=== PATIENT | male | born 1960 | race Caucasian/White ===

== ENCOUNTER 2020-06-27 09:50 | Emergency (ER) | payer OTHER ==
[2020-06-27 09:59] VITALS: RESP 18; TEMP 98.4
[2020-06-27] MEDS ORDERED: SODIUM CHLORIDE 0.9% 500 ML 500 ML IV STA ×2 (10:16→11:34)
--- NOTE | 2020-06-27 10:21 | ED ---
General Adult HPI - General Chief complaint: Abdominal Pain Stated complaint: Right side pain Time Seen by Provider: 06/27/20 10:09 Source: patient, RN notes reviewed Mode of arrival: ambulatory Limitations: no limitations - History of Present Illness Initial comments: 61-year-old male with a past medical history of diabetes mellitus presents to the emergency room for several complaints. Patient's complaining of right upper quadrant abdominal pain 2 weeks. States that this pain worsens when he coughs, sneezes, or moves a certain way. Patient denies any injury. Denies associated chest pain or shortness of breath. States it started about 2 weeks ago. Denies fevers or chills. Denies nausea vomiting diarrhea. Patient also states that around the same time he had a scrotal swelling. States his testicles are about 4 times the size of normal. States they're slightly uncomfortable but denies any significant pain. Denies fevers or chills. Denies any history of heart failure. Denies swelling in the legs or elsewhere.Patient has no other complaints at this time including shortness of breath, chest pain, nausea or vomiting, headache, or visual changes. - Related Data Home Medications Medication Instructions Recorded Confirmed Atorvastatin [Lipitor] 10 mg PO HS 06/27/20 06/27/20 metFORMIN HCL 1,000 mg PO BID 06/27/20 06/27/20 Previous Rx's Medication Instructions Recorded Cephalexin [Keflex] 500 mg PO Q6HR 10 Days #40 cap 06/27/20 Levofloxacin [Levaquin] 500 mg PO DAILY 10 Days #10 tab 06/27/20 Allergies Allergy/AdvReac Type Severity Reaction Status Date / Time No Known Allergies Allergy Verified 06/27/20 12:18 Review of Systems ROS Statement: Those systems with pertinent positive or pertinent negative responses have been documented in the HPI. ROS Other: All systems not noted in ROS Statement are negative. Past Medical History Past Medical History: Diabetes Mellitus History of Any Multi-Drug Resistant Organisms: None Reported Past Surgical History: Orthopedic Surgery Additional Past Surgical History / Comment(s): ears, knees, left hip Past Psychological History: No Psychological Hx Reported Smoking Status: Never smoker Past Alcohol Use History: None Reported Past Drug Use History: Marijuana General Exam Limitations: no limitations General appearance: alert, in no apparent distress Head exam: Present: atraumatic, normocephalic, normal inspection Eye exam: Present: normal appearance, PERRL, EOMI. Absent: scleral icterus, conjunctival injection, periorbital swelling ENT exam: Present: normal exam, mucous membranes moist Neck exam: Present: normal inspection, full ROM. Absent: tenderness, meningismus, lymphadenopathy Respiratory exam: Present: normal lung sounds bilaterally. Absent: respiratory distress, wheezes, rales, rhonchi, stridor Cardiovascular Exam: Present: regular rate, normal rhythm, normal heart sounds. Absent: systolic murmur, diastolic murmur, rubs, gallop, clicks GI/Abdominal exam: Present: soft, normal bowel sounds, other (states the pain is RUQ to mid right abdomen but is non-tender in this area ). 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 Absent: testicular tenderness, urethral discharge, vertical testicular lie Neurological exam: Present: alert Course Vital Signs 06/27/20 06/27/20 09:53 11:57 Temperature 98.4 F Pulse Rate 92 77 Respiratory 18 18 Rate Blood Pressure 153/89 142/85 O2 Sat by Pulse 98 97 Oximetry EKG Findings - EKG Comments: EKG Findings:: Right bundle-branch block, sinus rhythm, ventricular rate 73, PA interval 162, QTC 482 Medical Decision Making - Medical Decision Making Vitals are stable. HPI and physical exam as documented. Of note patient does have some right upper quadrant abdominal pain without any tenderness. No associated chest pain or shortness of breath. Patient does have edema of the scrotum with erythema overlying the left side of the scrotum. CBC does show leukocytosis of 14. CMP unremarkable. Lactic acid of 2.2 likely secondary to dehydration. Urinalysis is unremarkable. Gallbladder ultrasound showed cholelithiasis, correlate for cholecystitis. Patient reevaluated, no signif icant upper abdominal tenderness. Negative Weinstein sign. Labs are generally unremarkable. Bilirubin is normal. At this time he will be referred to general surgery for cholelithiasis however we do not suspect cholecystitis. Scrotal ultrasound did reveal bilateral hydroceles with possible epididymitis on the left. He does have some mild pain in this area as well as erythema overlying the left anterior scrotum. No evidence for fourniers and symptoms have been ongoing for 2 weeks. Patient was also evaluated by Dr. Shay. At this time he will be treated for epididymitis and cellulitis with Levaquin and Keflex. He will be given urology follow-up as well. If he has any worsening symptoms such as worsening abdominal pain or fevers he will return here to the emergency room. He has an appointment with his primary care doctor tomorrow. I discussed this case with attending Dr. shay who agrees with this assessment and treatment plan. - Lab Data Result diagrams: 06/27/20 10:22 06/27/20 10:22 Lab Results 06/27/20 06/27/20 06/27/20 Range/Units 10:22 10: 10:22 WBC 14.1 H (3.8-10.6) k/uL RBC 4.85 (4.30-5.90) m/uL Hgb 13.8 (13.0-17.5) gm/dL Hct 41.7 (39.0-53.0) % MCV 85.9 (80.0-100.0) fL MCH 28.4 (25.0-35.0) pg MCHC 33.0 (31.0-37.0) g/dL RDW 12.3 (11.5-15.5) % Plt Count 395 (150-450) k/uL MPV 7.0 Neutrophils % 87 % Lymphocytes % 7 % Monocytes % 4 % Eosinophils % 1 % Basophils % 1 % Neutrophils # 12.3 H (1.3-7.7) k/uL Lymphocytes # 0.9 L (1.0-4.8) k/uL Monocytes # 0.5 (0-1.0) k/uL Eosinophils # 0.2 (0-0.7) k/uL Basophils # 0.1 (0-0.2) k/uL Sodium 135 L (137-145) mmol/L Potassium 4.5 (3.5-5.1) mmol/L Chloride 104 (98-107) mmol/L Carbon Dioxide 26 (22-30) mmol/L Anion Gap 5 mmol/L BUN 13 (9-20) mg/dL Creatinine 0.80 (0.66-1.25) mg/dL Est GFR (CKD-EPI)AfAm >90 (>60 ml/min/1.73 sqM) Est GFR (CKD-EPI)NonAf >90 (>60 ml/min/1.73 sqM) Glucose 224 H (74-99) mg/dL Lactic Ac Sepsis Rflx Plasma Lactic Acid William (0.7-2.0) mmol/L Calcium 8.5 (8.4-10.2) mg/dL Total Bilirubin 0.5 (0.2-1.3) mg/dL AST 58 (17-59) U/L ALT 92 H (4-49) U/L Alkaline Phosphatase 253 H (38-126) U/L Troponin I (0.000-0.034) ng/mL NT-Pro-B Natriuret Pep pg/mL Total Protein 7.0 (6.3-8.2) g/dL Albumin 3.0 L (3.5-5.0) g/dL Amylase 53 (30-110) U/L Lipase 102 (23-300) U/L Urine Color Yellow Urine Appearance Clear (Clear) Urine pH 5.5 (5.0-8.0) Ur Specific [place] 1.020 (1.001-1.035) Urine Protein 2+ H (Negative) Urine Glucose (UA) 2+ H (Negative) Urine Ketones Negative (Negative) Urine Blood Small H (Negative) Urine Nitrite Negative (Negative) Urine Bilirubin Negative (Negative) Urine Urobilinogen 3.0 (<2.0) mg/dL Ur Leukocyte Esterase Negative (Negative) Urine RBC 2 (0-5) /hpf Urine WBC 1 (0-5) /hpf Ur Squamous Epith Cells <1 (0-4) /hpf Urine Bacteria Rare H (None) /hpf Urine Mucus Occasional H (None) /hpf 06/27/20 06/27/20 06/27/20 Range/Units 10:22 10:22 10:22 WBC (3.8-10.6) k/uL RBC (4.30-5.90) m/uL Hgb (13.0-17.5) gm/dL Hct (39.0-53.0) % MCV (80.0-100.0) fL MCH (25.0-35.0) pg MCHC (31.0-37.0) g/dL RDW (11.5-15.5) % Plt Count (150-450) k/uL MPV Neutrophils % % Lymphocytes % % Monocytes % % Eosinophils % % Basophils % % Neutrophils # (1.3-7.7) k/uL Lymphocytes # (1.0-4.8) k/uL Monocytes # (0-1.0) k/uL Eosinophils # (0-0.7) k/uL Basophils # (0-0.2) k/uL Sodium (137-145) mmol/L Potassium (3.5-5.1) mmol/L Chloride (98-107) mmol/L Carbon Dioxide (22-30) mmol/L Anion Gap mmol/L BUN (9-20) mg/dL Creatinine (0.66-1.25) mg/dL Est GFR (CKD-EPI)AfAm (>60 ml/min/1.73 sqM) Est GFR (CKD-EPI)NonAf (>60 ml/min/1.73 sqM) Glucose (74-99) mg/dL Lactic Ac Sepsis Rflx Plasma Lactic Acid William 2.2 H* (0.7-2.0) mmol/L Calcium (8.4-10.2) mg/dL Total Bilirubin (0.2-1.3) mg/dL AST (17-59) U/L ALT (4-49) U/L Alkaline Phosphatase (38-126) U/L Troponin I <0.012 (0.000-0.034) ng/mL NT-Pro-B Natriuret Pep 100 pg/mL Total Protein (6.3-8.2) g/dL Albumin (3.5-5.0) g/dL Amylase (30-110) U/L Lipase (23-300) U/L Urine Color Urine Appearance (Clear) Urine pH (5.0-8.0) Ur Specific [place] (1.001-1.035) Urine Protein (Negative) Urine Glucose (UA) (Negative) Urine Ketones (Negative) Urine Blood (Negative) Urine Nitrite (Negative) Urine Bilirubin (Negative) Urine Urobilinogen (<2.0) mg/dL Ur Leukocyte Esterase (Negative) Urine RBC (0-5) /hpf Urine WBC (0-5) /hpf Ur Squamous Epith Cells (0-4) /hpf Urine Bacteria (None) /hpf Urine Mucus (None) /hpf 06/27/20 Range/Units 11:03 WBC (3.8-10.6) k/uL RBC (4.30-5.90) m/uL Hgb (13.0-17.5) gm/dL Hct (39.0-53.0) % MCV (80.0-100.0) fL MCH (25.0-35.0) pg MCHC (31.0-37.0) g/dL RDW (11.5-15.5) % Plt Count (150-450) k/uL MPV Neutrophils % % Lymphocytes % % Monocytes % % Eosinophils % % Basophils % % Neutrophils # (1.3-7.7) k/uL Lymphocytes # (1.0-4.8) k/uL Monocytes # (0-1.0) k/uL Eosinophils # (0-0.7) k/uL Basophils # (0-0.2) k/uL Sodium (137-145) mmol/L Potassium (3.5-5.1) mmol/L Chloride (98-107) mmol/L Carbon Dioxide (22-30) mmol/L Anion Gap mmol/L BUN (9-20) mg/dL Creatinine (0.66-1.25) mg/dL Est GFR (CKD-EPI)AfAm (>60 ml/min/1.73 sqM) Est GFR (CKD-EPI)NonAf (>60 ml/min/1.73 sqM) Glucose (74-99) mg/dL Lactic Ac Sepsis Rflx Y Plasma Lactic Acid William (0.7-2.0) mmol/L Calcium (8.4-10.2) mg/dL Total Bilirubin (0.2-1.3) mg/dL AST (17-59) U/L ALT (4-49) U/L Alkaline Phosphatase (38-126) U/L Troponin I (0.000-0.034) ng/mL NT-Pro-B Natriuret Pep pg/mL Total Protein (6.3-8.2) g/dL Albumin (3.5-5.0) g/dL Amylase (30-110) U/L Lipase (23-300) U/L Urine Color Urine Appearance (Clear) Urine pH (5.0-8.0) Ur Specific [place] (1.001-1.035) Urine Protein (Negative) Urine Glucose (UA) (Negative) Urine Ketones (Negative) Urine Blood (Negative) Urine Nitrite (Negative) Urine Bilirubin (Negative) Urine Urobilinogen (<2.0) mg/dL Ur Leukocyte Esterase (Negative) Urine RBC (0-5) /hpf Urine WBC (0-5) /hpf Ur Squamous Epith Cells (0-4) /hpf Urine Bacteria (None) /hpf Urine Mucus (None) /hpf Disposition Clinical Impression: Cholelithiasis, Epididymitis, Cellulitis, scrotum, Hydrocele Disposition: HOME SELF-CARE Condition: Good Instructions (If sedation given, give patient instructions): Epididymitis (ED), Low Fat Diet (ED), Gallstones (ED) Additional Instructions: Please take Levaquin and Keflex as your antibiotics for scrotum. Please follow- up with urology. If symptoms are getting worse or your getting fevers return to the emergency room. Please follow up with general surgery for stones in your gallbladder. However if you are having worsening abdominal pain or fevers return to the emergency department. Prescriptions: Cephalexin [Keflex] 500 mg PO Q6HR 10 Days #40 cap Levofloxacin [Levaquin] 500 mg PO DAILY 10 Days #10 tab Is patient prescribed a controlled substance at d/c from ED?: No Referrals: Katlyn Ya MD [Primary Care Provider] - 1-2 days Fara Nair DO [Doctor of Osteopathic Medicine] - 1-2 days Donaldo Martínez MD [STAFF PHYSICIAN] - 1-2 days Time of Disposition: 13:12
[2020-06-27 10:42] LABS: Basophils # (A) 0.1 k/uL (0-0.2); Basophils % (A) 1 %; Eosinophils # (A) 0.2 k/uL (0-0.7); Eosinophils % (A) 1 %; HCT 41.7 % (39.0-53.0); HGB 13.8 gm/dL (13.0-17.5); Lymphocytes # (A) 0.9 k/uL (1.0-4.8); Lymphocytes % (A) 7 %; MCH 28.4 pg (25.0-35.0); MCV 85.9 fL (80.0-100.0); Monocytes # (A) 0.5 k/uL (0-1.0); Monocytes % (A) 4 %; Neutrophils # (A) 12.3 k/uL (1.3-7.7); Neutrophils % (A) 87 %; Platelet Count 395 k/uL (150-450); RBC 4.85 m/uL (4.30-5.90); RDW 12.3 % (11.5-15.5); WBC 14.1 k/uL (3.8-10.6)
[2020-06-27 11:00] LABS: AST 58 U/L (17-59); African American GFR (CKD) >90 (>60 ml/min/1.73 sqM); Alkaline Phosphatase 253 U/L (38-126); Amylase 53 U/L (30-110); Anion Gap 5 mmol/L; Blood Urea Nitrogen 13 mg/dL (9-20); Calcium 8.5 mg/dL (8.4-10.2); Carbon Dioxide 26 mmol/L (22-30); Chloride 104 mmol/L (98-107); Glucose 224 mg/dL (74-99); Lipase 102 U/L (23-300); Non-African American GFR(CKD) >90 (>60 ml/min/1.73 sqM); Potassium 4.5 mmol/L (3.5-5.1); Sodium 135 mmol/L (137-145); Total Bilirubin 0.5 mg/dL (0.2-1.3)
--- NOTE | 2020-06-27 11:07 | XR ---
EXAMINATION TYPE: XR chest 2V DATE OF EXAM: 06/27/2020 COMPARISON: Prior chest x-ray is unavailable HISTORY: Abdominal pain, right lower chest pain TECHNIQUE: Frontal and lateral views of the chest are obtained. FINDINGS: Right hemidiaphragm is elevated. Probable subsegmental basilar atelectatic changes are pre sent, there may be some basilar scarring. Patient is rotated. There is no evident pneumothorax or ple ural effusion. Heart is within normal limits for size. Bone mineralization is normal. IMPRESSION: Basilar atelectasis versus scarring.
[2020-06-27 11:19] LABS: ALT 92 U/L (4-49)
[2020-06-27 12:16] LABS: Appearance,Urine Clear (Clear); Bacteria,Urine Rare /hpf; Bilirubin,Urine Negative (Negative); Blood,Urine Small (Negative); Color,Urine Yellow; Glucose,Urine (UA) 2+ (Negative); Ketones,Urine Negative (Negative); Leukocyte Esterase,Urine Negative (Negative); Mucus,Urine Occasional /hpf; Nitrite,Urine Negative (Negative); PH, Urine 5.5 (5.0-8.0); Protein,Urine 2+ (Negative); RBC,Urine 2 /hpf (0-5); Squamous Epithelial Cell,Urine <1 /hpf (0-4); WBC,Urine 1 /hpf (0-5)
--- NOTE | 2020-06-27 12:17 | US ---
EXAMINATION TYPE: US scrotum with doppler. Grayscale and color Doppler Duplex imaging performed of eleanor wynn scrotum. DATE OF EXAM: 06/27/2020 COMPARISON: NONE CLINICAL HISTORY: pain. Bilateral scrotal swelling left greater than right and noted after wrenching up pants several weeks ago EXAM MEASUREMENTS: TESTICLES: Right Testicle: 4.2 x 3.0 x 2.8 cm Left Testicle: 4.3 x 2.7 x 2.6 cm EPIDIDYMIS HEAD: Right Epididymis: 1.1 x 1.8 x 2.5 cm Left Epididymis: 2.4 x x 3.4 x 3.0 cm Doppler was performed to assess for testicular vascularity; bilateral color flow and waveforms are s een. There is no evidence of testicular torsion. Presence of hydroceles: seen in bilateral scrotal sac. In right scrotal sac hydrocele =3.7 x 4.1 x 1 .5cm and left hydrocele = 5.6 x 4.9 x 3.0cm Presence of varicoceles: not seen Right epididymal appendix is also seen, there are epididymal cysts. Bilateral epididymis is abnormall y thickened and head is hypervascular. Testicular echotexture is homogenous and symmetric IMPRESSION: Bilateral hydroceles, correlate for epididymitis on the left, additional findings above.
--- NOTE | 2020-06-27 12:24 | US ---
EXAMINATION TYPE: US gallbladder DATE OF EXAM: 06/27/2020 COMPARISON: NONE CLINICAL HISTORY: pain. RUQ pain EXAM MEASUREMENTS: Liver Length: 17.6 cm Gallbladder Wall: .7 cm CBD: .5 cm Right Kidney: 11.5 x 5.6 x 5.8 cm Pancreas: Obscured by bowel gas Liver: Limited due to rib showing shadowing, echotexture somewhat coarse Gallbladder: Multiple stones visualized. Evidence for sonographic Weinstein's sign: No CBD: wnl Right Kidney: No hydronephrosis or masses seen Gallbladder wall is thickened, I question some pericholecystic fluid IMPRESSION: Cholelithiasis, correlate for cholecystitis. Exam is limited. Correlate for possible hepa tic steatosis.
[2020-06-27] MEDS ORDERED: CEPHALEXIN 500 MG CAP PO STA (13:00)
[2020-06-27] MEDS ORDERED: LEVOFLOXACIN 500 MG TAB PO STA (13:00)
[2020-06-27 13:34] VITALS: BP 149/88; PULSE 88
[2020-06-28 14:58] LABS: C. trachomatis,PCR Negative (Neg,Equiv); Chlamydia trachomatis Source Urine; N. gonorrhoeae,PCR Negative (Neg,Equiv); Neisseria Source Urine
== END 2020-06-27 13:39 | disposition home or self-care (01) ==
LOC: EC 09:50
DX: K80.20 Calculus of gallbladder without cholecystitis without obstruction (principal); N43.3 Hydrocele, unspecified; N45.1 Epididymitis; E11.9 Type 2 diabetes mellitus without complications; Z79.84 Long term (current) use of oral hypoglycemic drugs; Z79.899 Other long term (current) drug therapy
CPT/HCPCS: 36415; 71046; 76705; 76870; 80053; 81001; 82150; 83605; 83690; 83880; 84484; 85025; 87491; 87591; 93005; 93975; 99284

== ENCOUNTER 2021-08-15 10:18 | Day surgery (SDC) | payer OTHER ==
[2021-08-15 11:06] LABS: Glucose,Whole Blood 122 mg/dL (75-99)
[2021-08-15 11:07] VITALS: RESP 16; TEMP 97.8
[2021-08-15] MEDS ORDERED: LACTATED RINGERS 1,000 ML IV SCH (11:08)
[2021-08-15] MEDS ORDERED: PROPOFOL 10 MG/ML 20 ML VIAL IV ONE (11:46)
--- NOTE | 2021-08-15 11:49 | P.GSHP ---
History of Present Illness H&P Date: 08/15/21 Chief Complaint: Screening colonoscopy Is a 61-year-old male presents today for screening colonoscopy. Patient denies any significant GI complaints. Past Medical History Past Medical History: Diabetes Mellitus History of Any Multi-Drug Resistant Organisms: None Reported Past Surgical History: Orthopedic Surgery Additional Past Surgical History / Comment(s): ears, knees, left hip Past Psychological History: No Psychological Hx Reported Smoking Status: Never smoker Past Alcohol Use History: None Reported Past Drug Use History: Marijuana Medications and Allergies Home Medications Medication Instructions Recorded Confirmed Type No Known Home Medications 08/15/21 08/15/21 History Allergies Allergy/AdvReac Type Severity Reaction Status Date / Time No Known Allergies Allergy Verified 08/15/21 10:51 Surgical - Exam Vital Signs Temp Pulse Resp BP Pulse Ox 97.8 F 61 16 137/75 94 L 08/15/21 11:06 08/15/21 11:06 08/15/21 11:06 08/15/21 11:06 08/15/21 11:06 - General well developed, well nourished, no distress - Eyes PERRL - ENT normal pinna - Neck no masses - Respiratory normal expansion - Cardiovascular Rhythm: regular - Abdomen Abdomen: soft, non tender Results - Labs Abnormal Lab Results - Last 24 Hours (Table) 08/15/21 Range/Units 11:01 POC Glucose (mg/dL) 122 H (75-99) mg/dL Assessment and Plan Assessment: We'll perform screening colonoscopy
--- NOTE | 2021-08-15 12:01 | P.OP ---
Date of Procedure: 08/15/21 Preoperative Diagnosis: Screening colonoscopy Postoperative Diagnosis: Normal colon Procedure(s) Performed: Colonoscopy Anesthesia: MAC Surgeon: Andrés Mahan Pathology: none sent Condition: stable Disposition: PACU Description of Procedure: Patient's placed on the endoscopy table in the lateral position. He received IV sedation. Digital rectal exam was performed which revealed no abnormalities. Flexible colonoscope was then placed patient anus passed throughout the entire colon. The ileocecal valve was excised. The cecum, ascending and transverse colon appeared normal. In the descending colon was a few scattered diverticula. Scope was then brought back the rectum and this appeared normal. There were a few internal hemorrhoids noted. Scope withdrawn for patient.
[2021-08-15 12:40] VITALS: BP 122/72; PULSE 58
== END 2021-08-15 14:01 | disposition home or self-care (01) ==
LOC: ORWHC2ENDO 10:18
PROVIDERS: ATTEND Surgery
DX: Z12.11 Encounter for screening for malignant neoplasm of colon (principal); K57.30 Diverticulosis of large intestine without perforation or abscess without bleeding; K64.8 Other hemorrhoids; E11.9 Type 2 diabetes mellitus without complications; Z98.890 Other specified postprocedural states; E78.5 Hyperlipidemia, unspecified; Z79.84 Long term (current) use of oral hypoglycemic drugs; Z79.899 Other long term (current) drug therapy
CPT/HCPCS: J2704; G0121

== ENCOUNTER → 2022-10-06 | Outpatient (CLI) | payer BC, OTHER ==
[2022-10-06 20:22] LABS: Basophils # (A) 0.02 X 10*3/uL (0.00-0.10); Basophils % (A) 0.3 %; Eosinophils # (A) 0.16 X 10*3/uL (0.04-0.35); Eosinophils % (A) 2.1 %; HCT 46.3 % (39.6-50.0); HGB 15.3 g/dL (13.0-17.0); Immature Grans, Automated 0.3 %; Lymphocytes # (A) 1.65 X 10*3/uL (0.90-5.00); Lymphocytes % (A) 21.8 %; MCH 29.2 pg (27.0-32.0); MCV 88.4 fL (80.0-97.0); Mean Platelet Volume 10.9 fL (9.5-12.2); Monocytes # (A) 0.54 X 10*3/uL (0.20-1.00); Monocytes % (A) 7.1 %; NRBC Per 100 WBC 0 /100 WBCS (0.0-0.0); Neutrophils # (A) 5.17 X 10*3/uL (1.80-7.70); Neutrophils % (A) 68.4 %; Platelet Count 266 X 10*3/uL (140-440); RBC 5.24 X 10*6/uL (4.40-5.60); RDW 12.6 % (11.5-14.5); WBC 7.56 X 10*3/uL (4.50-10.00)
[2022-10-06 21:46] LABS: African American GFR (CKD) 81.8 (60.0-200.0); BUN/Creat Ratio 14.27 Ratio (12.00-20.00); Blood Urea Nitrogen 15.7 mg/dL (9.0-27.0); Calcium 9.5 mg/dL (8.7-10.3); Carbon Dioxide 27.5 mmol/L (20.0-27.5); Non-African American GFR(CKD) 70.6 (60.0-200.0); Potassium 4.5 mmol/L (3.5-5.5)
[2022-10-07 04:50] LABS: Appearance,Urine Turbid (Clear); Bilirubin,Urine Negative (Negative); Blood,Urine Negative (Negative); Color,Urine Dark Yellow (Yellow); Ketones,Urine Trace mg/dL (Negative); Nitrite,Urine Negative (Negative); Specific Gravity,Urine 1.031 (1.001-1.030)
[2022-10-07 04:54] LABS: Bacteria,Urine None Seen /HPF (None Seen)
== END | disposition home or self-care (01) ==
LOC: LABPAT 15:03
PROVIDERS: ATTEND Urology
DX: Z01.812 Encounter for preprocedural laboratory examination (principal); R97.20 Elevated prostate specific antigen [PSA]; R31.29 Other microscopic hematuria
CPT/HCPCS: 80048; 81001; 85025; 87086

== ENCOUNTER → 2022-10-14 | Day surgery (SDC) | payer BC, OTHER ==
--- NOTE | 2022-10-07 09:01 | P.HPIHPCON ---
History of Present Illness H&P Date: 10/07/22 Chief Complaint: Elevated PSA This is a 62-year-old male with history of elevated PSA, underwent a prostate MRI that showed evidence of a PIRADS 5 lesion. Discussed with him given this finding recommend proceeding with a MRI fusion biopsy. Discussed risk which includes but not limited to bleeding, infection, potential of having prostate cancer even with negative biopsy. Risk of anesthesia was discussed. He understood all the risk and agreed to proceed Consent for Procedure: I have explained the operation/procedure to the patient, including the risks, benefits, side effects, alternative therapies (including not receiving the proposed treatment or service), the likelihood of the patient achieving his/her goals, and potential recuperation problems for the procedure/sedation/analgesia, as well as any blood products, if indicated. I also explained to the patient the risks, benefits and side effects of the alternatives, as well as the risks related to not receiving the proposed procedure, care, treatment, or services. Past Medical History Past Medical History: Diabetes Mellitus History of Any Multi-Drug Resistant Organisms: None Reported Past Surgical History: Orthopedic Surgery Additional Past Surgical History / Comment(s): ears, knees, left hip Past Psychological History: No Psychological Hx Reported Smoking Status: Never smoker Past Alcohol Use History: None Reported Past Drug Use History: Marijuana Medications and Allergies Home Medications Medication Instructions Recorded Confirmed Type No Known Home Medications 08/15/21 08/15/21 History Allergies Allergy/AdvReac Type Severity Reaction Status Date / Time No Known Allergies Allergy Verified 08/15/21 10:51 Surgical - Exam - General no distress, no pain - Eyes normal ocular movement, no pale - ENT normal nares, normal mucosa - Respiratory normal expansion, normal respiratory effort Assessment and Plan Assessment: OR for MRI fusion biopsy
[~2022-10-14] MED LIST: GENTAMICIN 120 MG in SODIUM CHLORIDE 0.9% 100 ML IVPB PRN; GLYCOPYRROLATE 0.2 MG/ML 2 ML VIAL ONE; LACTATED RINGERS 1,000 ML IV SCH; LIDOCAINE 1% (10MG/ML) FOR IV START INTRADERMA PRN; LIDOCAINE 2% INJ 20 MG/ML (2 ML VIAL) ONE; PROPOFOL 10 MG/ML 20 ML VIAL IV ONE
--- NOTE | 2022-10-14 13:07 | XR ---
EXAMINATION TYPE: XR KUB DATE OF EXAM: 10/14/2022 12:49 PM CLINICAL HISTORY: Elevated PSA. TECHNIQUE: Two Upright KUB images of the abdomen are obtained. COMPARISON: None. FINDINGS: Scattered gas is seen in non-distended small bowel loops. Gas and fecal material is seen in non-distended colon. Fixating screws through healed fracture left proximal femur. Mild vascular calc ification in the pelvis. No visceromegaly. IMPRESSION: Overall nonobstructive bowel gas pattern.
[2022-10-14 13:16] VITALS: RESP 16; TEMP 97.9
[2022-10-14 13:21] VITALS: BMI 31.7
[2022-10-14 13:39] LABS: Glucose,Whole Blood 118 mg/dL (70-110)
--- NOTE | 2022-10-14 14:10 | P.OP ---
Date of Procedure: 10/14/22 Preoperative Diagnosis: elevated PSA Postoperative Diagnosis: Same Procedure(s) Performed: MRI fusion prostate biopsies Implants: none Anesthesia: MAC Surgeon: Sukhjinder Anderson Estimated Blood Loss (ml): 5 Pathology: other (prostate biopsies) Condition: stable Disposition: PACU Indications for Procedure: This is a 62-year-old male with history of elevated PSA, underwent a prostate MRI that showed evidence of a PIRADS 5 lesion. Discussed with him given this finding recommend proceeding with a MRI fusion biopsy. Discussed risk which includes but not limited to bleeding, infection, potential of having prostate cancer even with negative biopsy. Risk of anesthesia was discussed. He understood all the risk and agreed to proceed Description of Procedure: The patient was taken to the operating room and placed in the left lateral decubitus position. The Really Simple transrectal ultrasound probe was placed intrarectally. It was then placed within the stand of the [employer] MRI/TRUS Fusion for Prostate Biopsy system. The prostate was imaged in both the axial and sagittal planes, revealing a prostate volume of 54 mL. Using the Biopsy gun, 3 biopsies were obtained from the target lesions. The remaining 12 biopsies of the peripheral zone were obtained utilizing a standard template. Once the procedure was completed, the ultrasound probe was removed. The patient tolerated the procedure well was taken to the recovery room stable condition.
[2022-10-14 14:54] VITALS: BP 126/63; PULSE 59
== END | disposition home or self-care (01) ==
LOC: OR 12:32
PROVIDERS: ATTEND Urology
DX: C61 Malignant neoplasm of prostate (principal); E11.9 Type 2 diabetes mellitus without complications; F12.90 Cannabis use, unspecified, uncomplicated
CPT/HCPCS: 55700; 74018; 77021; J1580; J2704; J2001; 88305; 88344

== ENCOUNTER → 2022-10-30 | Outpatient (CLI) | payer BC, OTHER ==
[2022-10-30 13:25] LABS: African American GFR (CKD) >90 (>60 ml/min/1.73 sqM); Blood Urea Nitrogen 17 mg/dL (9-20); Non-African American GFR(CKD) 88 (>60 ml/min/1.73 sqM)
--- NOTE | 2022-10-30 14:49 | CT ---
EXAMINATION TYPE: CT abdomen pelvis w con CT DLP: 1749.80 mGycm, Automated exposure control for dose reduction was used. DATE OF EXAM: 10/30/2022 1:58 PM COMPARISON: MRI prostate 09/06/2022 CLINICAL INDICATION:Male, 62 years old with history of C61 MALIGNANT NEOPLASM OF PROSTATE; hx of pros rodrigues ca and groin hernia. TECHNIQUE: Axial CT of the abdomen and pelvis. Sagittal and coronal reformats were created on a [employer] workstation. Contrast used:100 mL of Isovue 300 with IV Contrast, Oral contrast used: with Oral Contrast FINDINGS: LOWER CHEST: Unremarkable ABDOMEN LIVER: Unremarkable GALLBLADDER AND BILE DUCTS: Layering increased densities within the lumen consistent with gallstones are present. PANCREAS: Unremarkable. SPLEEN: Unremarkable. ADRENAL GLANDS: Unremarkable. KIDNEYS AND URETERS: No evidence of hydronephrosis or renal calculus. The ureters are unremarkable. PELVIS BLADDER: Unremarkable REPRODUCTIVE: The prostate gland is enlarged measuring up to 5.3 cm. Lesion seen on prior MRI not def initively visualized. ABDOMEN & PELVIS STOMACH AND BOWEL: No evidence of bowel obstruction. The appendix is normal. PERITONEUM/RETROPERITONEUM: No evidence of pneumoperitoneum or free fluid. VASCULATURE: No evidence of aortic aneurysm. MUSCULOSKELETAL: No acute osseous abnormalities, whole 5 vertebral body and left iliac bone suspected bone islands. No suspicious osseous lesions definitively visualized. Fixation hardware in the left p roximal femur appears intact. LYMPH NODES: No gross evidence for lymphadenopathy. SOFT TISSUE/ABDOMINAL WALL: Fat containing inguinal hernias left greater than right. IMPRESSION: 1. Prostatomegaly. Suspicious lesion seen on prior MRI is less well appreciated given differences in technique. There is no greater than 1.0 cm lymph node in the abdomen or pelvis. No suspicious osseou s lesions. 2. Large fat-containing left inguinal hernia. 3. Cholelithiasis.
== END | disposition home or self-care (01) ==
LOC: RADCTMAIN 11:56
PROVIDERS: ATTEND Urology
DX: C61 Malignant neoplasm of prostate (principal); N40.0 Benign prostatic hyperplasia without lower urinary tract symptoms; K40.90 Unilateral inguinal hernia, without obstruction or gangrene, not specified as recurrent; K80.20 Calculus of gallbladder without cholecystitis without obstruction
CPT/HCPCS: 82565; 84520; 74177; 36415; Q9967

== ENCOUNTER 2022-12-08 05:41 | Day surgery (SDC) | payer BC, OTHER ==
[~2022-12-08 05:41] MED LIST changes: +ACETAMINOPHEN TAB 500 MG TAB PO PRN; -GENTAMICIN 120 MG in SODIUM CHLORIDE 0.9% 100 ML IVPB PRN; -GLYCOPYRROLATE 0.2 MG/ML 2 ML VIAL ONE; +HEPARIN SODIUM,PORCINE/PF 5,000 UNIT/0.5 ML SYRINGE SQ PRN; -LACTATED RINGERS 1,000 ML IV SCH; -LIDOCAINE 1% (10MG/ML) FOR IV START INTRADERMA PRN; -LIDOCAINE 2% INJ 20 MG/ML (2 ML VIAL) ONE; -PROPOFOL 10 MG/ML 20 ML VIAL IV ONE
[2022-12-08] MEDS ORDERED: DEXAMETHASONE SOD PHOSPHATE 4 MG/ML 1 ML VIAL IV ONE (06:11)
[2022-12-08] MEDS ORDERED: HYDROmorphone 0.5 MG/0.5 ML SYRINGE IVP PRN (06:11)
[2022-12-08] MEDS ORDERED: LACTATED RINGERS 1,000 ML IV SCH (06:11)
[2022-12-08] MEDS ORDERED: ONDANSETRON 4 MG/2 ML VIAL IVP ONE (06:11)
[2022-12-08 06:39] LABS: Glucose,Whole Blood 149 mg/dL (70-110)
[2022-12-08] MEDS ORDERED: BUPIVACAINE (PF) 0.25% 30 ML VIAL SQ ONE ×3 (07:22→07:48)
[2022-12-08] MEDS ORDERED: MIDAZOLAM 2 MG/2 ML VIAL ONE (07:27)
[2022-12-08] MEDS ORDERED: PROPOFOL 10 MG/ML 20 ML VIAL IV ONE (07:27)
[2022-12-08] MEDS ORDERED: LIDOCAINE 2% INJ 20 MG/ML (2 ML VIAL) ONE (07:27)
[2022-12-08] MEDS ORDERED: GLYCOPYRROLATE 0.2 MG/ML 2 ML VIAL ONE (07:27)
[2022-12-08] MEDS ORDERED: fentaNYL (PF) 50 MCG/ML 2 ML AMP ONE (07:27)
[2022-12-08] MEDS ORDERED: NEOSTIGMINE 1 MG/ML 10 ML VIAL ONE (07:27)
[2022-12-08] MEDS ORDERED: KETOROLAC 30 MG/ML 1 ML VIAL ONE (07:27)
[2022-12-08] MEDS ORDERED: SUCCINYLCHOLINE CHLORIDE 200 MG/10 ML VIAL IV ONE (07:27)
[2022-12-08] MEDS ORDERED: ROCURONIUM 10 MG/ML (5 ML VIAL) IV ONE (07:27)
[2022-12-08] MEDS ORDERED: LACTATED RINGERS 1,000 ML IV ONE (08:33)
[2022-12-08 08:55] VITALS: RESP 16; TEMP 97
--- NOTE | 2022-12-08 09:02 | P.OP ---
Date of Procedure: 12/08/22 Preoperative Diagnosis: Large recurrent left inguinal hernia Postoperative Diagnosis: Large recurrent left inguinal hernia with scrotal involvement Procedure(s) Performed: Open repair of large left inguinal hernia Partial omentectomy Left orchiectomy Anesthesia: WILIAN Surgeon: Andrés Mahan Estimated Blood Loss (ml): 25 Pathology: other (Omentum, left testicle) Condition: stable Disposition: PACU Description of Procedure: The patient's placed on the operative table in the supine position. He received general endotracheal tube and see. His abdomen was prepped and draped usual sterile fashion. The patient had a previous scar from left inguinal hernia repair. The scar was incised. Using blunt and sharp dissection with cautery the subcutaneous tissues were divided and the fascia external oblique was exposed. There were previously placed 0 Ethibond sutures be seen scar. The fascia external oblique was then incised and opened with pair metastases months scissors. There was significant adhesions around the fashion. The patient had a large recurrent left internal hernia. There was scrotal involvement of the hernia. The hernia sac was dissected free from the cord structures. The hernia was quite large. The hernia sac was then opened. The incarcerated omentum within dissected free and sent to pathology. He was divided with the Enseal device. At this point the hernia was inspected. The defect was quite large. It was decided to perform a orchiectomy due to the recurrent nature and the large size the hernia. The testicles and lesser free. The cord structures underwent a high ligation with 0 silk ties. A hernia sac was then transected and closed and sent to pathology. A Vicryl was used to close the hernia sac. The [id number] was then palpated and a piece of Prolene mesh was placed into the pre-peritoneal space. The fascia external oblique was then closed with 0 Vicryl suture. Dakotah's fascia closed with 2-0 Vicryl suture and skin was closed interrupted 3-0 Monocryl suture. Dermabond dressings was applied. Patient top she will was sent to recovery in stable condition.
[2022-12-08 09:08] LABS: Glucose,Whole Blood 162 mg/dL (70-110)
[2022-12-08 09:57] VITALS: BP 134/59; PULSE 50
== END 2022-12-08 10:36 | disposition home or self-care (01) ==
LOC: OR 05:41
PROVIDERS: ATTEND Surgery
DX: K40.91 Unilateral inguinal hernia, without obstruction or gangrene, recurrent (principal); K66.0 Peritoneal adhesions (postprocedural) (postinfection); N44.2 Benign cyst of testis; E11.9 Type 2 diabetes mellitus without complications; N40.0 Benign prostatic hyperplasia without lower urinary tract symptoms; Z79.84 Long term (current) use of oral hypoglycemic drugs
CPT/HCPCS: 49520; 54522; C1781; J2250; J0330; J1100; J2710; J0690; J2405; J3010; J1885; J2704; J1644; J2001; 88302; 88305

== ENCOUNTER → 2023-04-23 | Outpatient (CLI) | payer MEDICARE, BC, OTHER | END | disposition home or self-care (01) | LOC: LABWHC1 14:40 | PROVIDERS: ATTEND Radiology Radiation Oncology | DX: C61 Malignant neoplasm of prostate (principal); Z87.891 Personal history of nicotine dependence | CPT/HCPCS: 36415; 84153 ==

== ENCOUNTER → 2023-05-18 | Outpatient (CLI) | payer MEDICARE, BC, OTHER | END | disposition home or self-care (01) | LOC: RADXRMAIN 14:56 | PROVIDERS: ATTEND Internal Medicine | DX: Z53.9 Procedure and treatment not carried out, unspecified reason (principal) ==

== ENCOUNTER → 2023-05-19 | Outpatient (CLI) | payer MEDICARE, BC, OTHER ==
--- NOTE | 2023-05-19 16:56 | XR ---
EXAMINATION TYPE: XR foot complete LT DATE OF EXAM: 05/19/2023 3:40 PM CLINICAL INDICATION:Male, 63 years old with history of M79.672; COMPARISON: None TECHNIQUE: XR foot complete LT examined in the AP, oblique, and lateral projections. FINDINGS: No evidence of any acute osseous pathology. No evidence of soft tissue swelling. Joints are preserve d. Fixation archie in the distal tibia appears intact. Accessory ossicle next to the cuboid. Multifocal degeneration with joint space narrowing osteophyte formation. Minimal plantar spurring noted involvin g the heel. IMPRESSION: 1. No evidence of acute fracture. 2. The heel is grossly within normal limits and may be mild plantar calcaneal spurring.
--- NOTE | 2023-05-19 16:57 | XR ---
EXAMINATION TYPE: XR shoulder complete RT DATE OF EXAM: 05/19/2023 3:40 PM CLINICAL INDICATION:Male, 63 years old with history of M25.511; [facility] COMPARISON: None TECHNIQUE: XR shoulder complete RT; shoulder was examined in AP, internally rotated and scapular Y p rojections. FINDINGS: No evidence of acute osseous pathology, joint dislocation, or soft tissue swelling. The remaining po rtions of the visualized chest are unremarkable. Mild osteophyte formation of the glenoid and acromion and distal clavicle. IMPRESSION: 1. No acute osseous pathology. 2. Mild right shoulder osteoarthrosis.
== END | disposition home or self-care (01) ==
LOC: RADXRMAIN 15:13
PROVIDERS: ATTEND Internal Medicine
DX: M77.32 Calcaneal spur, left foot (principal); M19.011 Primary osteoarthritis, right shoulder

== ENCOUNTER → 2023-07-21 | Outpatient (CLI) | payer MEDICARE, BC, OTHER | END | disposition home or self-care (01) | LOC: LABWHC1 13:26 | PROVIDERS: ATTEND Radiology Radiation Oncology | DX: C61 Malignant neoplasm of prostate (principal); Z87.891 Personal history of nicotine dependence | CPT/HCPCS: 36415; 84153 ==

== ENCOUNTER → 2023-08-03 | Outpatient (CLI) | payer MEDICARE, BC | END | disposition home or self-care (01) | LOC: LABWHC1 13:05 | PROVIDERS: ATTEND Radiology Radiation Oncology | DX: C61 Malignant neoplasm of prostate (principal); Z87.891 Personal history of nicotine dependence | CPT/HCPCS: 36415; 84153 ==

== ENCOUNTER → 2023-10-01 | Outpatient (CLI) | payer MEDICARE, BC | END | disposition home or self-care (01) | LOC: LABWHC1 11:53 | PROVIDERS: ATTEND Radiology Radiation Oncology | DX: Z00.00 Encounter for general adult medical examination without abnormal findings (principal); C61 Malignant neoplasm of prostate; Z87.891 Personal history of nicotine dependence | CPT/HCPCS: 36415; 84153 ==

== ENCOUNTER 2023-12-25 13:08 | Inpatient (IN) | payer MEDICARE, BC ==
--- NOTE | 2023-12-25 14:31 | XR ---
EXAMINATION TYPE: XR Hip RT and AP Pelvis DATE OF EXAM: 12/25/2023 2:21 PM CLINICAL INDICATION:Male, 63 years old with history of fall, hip pain; COMPARISON: None. TECHNIQUE: XR Hip RT and AP Pelvis; hip was examined in the frontal and lateral projections and a AP pelvis. FINDINGS: Left hip fixation hardware appears intact. Right femoral neck fracture with minimal displac ement. No additional fractures. Degeneration changes of the lower spine. IMPRESSION: Right femoral neck fracture with minimal displacement.
--- NOTE | 2023-12-25 14:39 | ED ---
Lower Extremity Injury HPI - General Chief Complaint: Extremity Injury, Lower Stated Complaint: Fall-Hip Injury Time Seen by Provider: 12/25/23 13:20 Source: patient Mode of arrival: wheelchair Limitations: no limitations - History of Present Illness Initial Comments: 63-year-old male with past medical history of diabetes, prostate cancer who presents to the emergency department after a fall. States he was cutting grass when he slipped and fell down a hill. He landed on the concrete on his right hip. Patient has been unable to weight-bear. He does have previous history of left hip fracture and states that his pain feels the same. He denies hitting his head. No loss of consciousness. No neck or back pain. No numbness, tingling or weakness in his extremity. No knee or ankle pain. No other alleviating, precipitating or modifying factors - Related Data Home Medications Medication Instructions Recorded Confirmed Atorvastatin [Lipitor] 10 mg PO DAILY 12/25/23 12/25/23 Ibuprofen [Motrin] 800 mg PO TID@0700,1300,2300 12/25/23 12/25/23 metFORMIN HCL 500 mg PO BID 12/25/23 12/25/23 Previous Rx's Medication Instructions Recorded Aspirin 81 mg PO BID #60 tab 12/26/23 Diclofenac Sodium [Voltaren] 75 mg PO BID #60 tab 12/26/23 Docusate [Colace] 100 mg PO BID #60 capsule 12/26/23 Doxycycline Monohydrate 100 mg PO BID #28 cap 12/26/23 HYDROcodone/APAP 5-325MG [[place] 1 - 2 tab PO Q6HR PRN #32 tab 12/26/23 5-325] Omeprazole 40 mg PO DAILY #30 cap 12/26/23 Allergies Allergy/AdvReac Type Severity Reaction Status Date / Time No Known Allergies Allergy Verified 12/25/23 15:31 Review of Systems ROS Statement: Those systems with pertinent positive or pertinent negative responses have been documented in the HPI. ROS Other: All systems not noted in ROS Statement are negative. Past Medical History Past Medical History: Cancer, Diabetes Mellitus, Hearing Disorder / Deafness, Musculoskeletal Disorder, Osteoarthritis (OA), Prostate Disorder Additional Past Medical History / Comment(s): HEART RATE RUNS SLOW (mid 50s), ENLARGED PROSTATE dX WITH PROSTATE CANCER, CHRONIC EAR INFECTIONS hearing loss in both hear. pain in both knees. History of Any Multi-Drug Resistant Organisms: None Reported Past Surgical History: Ear Surgery, Hernia Repair, Orthopedic Surgery, Tonsillectomy Additional Past Surgical History / Comment(s): ear SURGERY , BILATERAL knees arthroscopic, left hip FRACTURE REPAIR, LEFT TIBIA REPAIR Past Anesthesia/Blood Transfusion Reactions: No Reported Reaction Past Psychological History: No Psychological Hx Reported Smoking Status: Former smoker - Past Family History Mother Family Medical History: No Reported History General Exam Limitations: no limitations General appearance: alert, in no apparent distress Head exam: Present: atraumatic, normocephalic, normal inspection Eye exam: Present: normal appearance, PERRL, EOMI. Absent: scleral icterus, conjunctival injection, periorbital swelling ENT exam: Present: normal exam, mucous membranes moist Neck exam: Present: normal inspection. Absent: tenderness, meningismus, lymphadenopathy Respiratory exam: Present: normal lung sounds bilaterally. Absent: respiratory distress, wheezes, rales, rhonchi, stridor Cardiovascular Exam: Present: regular rate, normal rhythm, normal heart sounds. Absent: systolic murmur, diastolic murmur, rubs, gallop, clicks GI/Abdominal exam: Present: soft, normal bowel sounds. Absent: distended, tenderness, guarding, rebound, rigid Extremities exam: Present: tenderness (To palpation of the right hip), normal capillary refill, other (Decreased range of motion due to pain. 2+ DP and PT pulses). Absent: pedal edema, joint swelling, calf tenderness Back exam: Present: normal inspection Neurological exam: Present: alert, oriented X3, CN II-XII intact Psychiatric exam: Present: normal affect, normal mood Skin exam: Present: warm, dry, intact, normal color. Absent: rash Course Vital Signs 12/25/23 12/25/23 13:15 16:04 Temperature 98.3 F Pulse Rate 59 L 51 L Respiratory 18 18 Rate Blood Pressure 123/70 126/70 O2 Sat by Pulse 97 97 Oximetry Medical Decision Making - Medical Decision Making Was pt. sent in by a medical professional or institution (, PA, WAFER FABRICATOR, urgent care, hospital, or half-way...) When possible be specific @ -No Did you speak to anyone other than the patient for history (EMS, parent, family, police, friend...)? What history was obtained from this source @ -None Did you review nursing and triage notes (agree or disagree)? Why? @ -I reviewed and agree with nursing and triage notes Were old charts reviewed (outside hosp., previous admission, EMS record, old EKG, old radiological studies, urgent care reports/EKG's, half-way records)? Report findings @ -No old charts were reviewed Differential Diagnosis (chest pain, altered mental status, abdominal pain women, abdominal pain men, vaginal bleeding, weakness, fever, dyspnea, syncope, headache, dizziness, GI bleed, back pain, seizure, CVA, palpatations, mental health, musculoskeletal)? @ -Differential Musculoskeletal Muscular strain, contusion, ligament sprain, fracture, arthritis, septic arthritis, bursitis, cellulitis, muscle spasm, nerve compression, DVT, arterial occlusion, herpes zoster, electrolyte abnormality, tumor.... This is not meant to be in all inclusive list EKG interpreted by me (3pts min.). @ -Yes and demonstrates sinus bradycardia with a rate of 50. NJ interval 182. QRS 159. QTc of 471. Right bundle branch block X-rays interpreted by me (1pt min.). @ -Yes and demonstrates right hip fracture CT interpreted by me (1pt min.). @ -None done U/S interpreted by me (1pt. min.). @ -None done What testing was considered but not performed or refused? (CT, X-rays, U/S, labs)? Why? @ -None What meds were considered but not given or refused? Why? @ -None Did you discuss the management of the patient with other professionals (professionals i.e. , PA, WAFER FABRICATOR, lab, RT, psych nurse, family welfare social work professor, stockbroker, teacher, facilities officer, medical case manager)? Give summary @ -Spoke with Dr. Cruz for medical clearance. Spoke with Dr. Draper for admission Was smoking cessation discussed for >3mins.? @ -No Was critical care preformed (if so, how long)? @ -No Were there social determinants of health that impacted care today? How? (Homelessness, low income, unemployed, alcoholism, drug addiction, transportation, low edu. Level, literacy, decrease access to med. care, penitentiary, rehab)? @ -No Was there de-escalation of care discussed even if they declined (Discuss DNR or withdrawal of care, Hospice)? DNR status @ -No What co-morbidities impacted this encounter? (DM, HTN, Smoking, COPD, CAD, Cancer, CVA, ARF, Chemo, Hep., AIDS, mental health diagnosis, sleep apnea, morbid obesity)? @ -Prostate cancer Was patient admitted / discharged? Hospital course, mention meds given and route, prescriptions, significant lab abnormalities, going to OR and other pertinent info. @ -Upon arrival patient seen and evaluated in room 10. Thorough history and physical exam was performed. Patient given pain medications. X-ray performed which demonstrates right hip fracture. Spoke with Dr. Draper for admission. He is requesting some physicians for preop clearance. Dr. Cruz is made aware Undiagnosed new problem with uncertain prognosis? @ -No Drug Therapy requiring intensive monitoring for toxicity (Heparin, Nitro, Insulin, Cardizem)? @ -No Were any procedures done? @ -No Diagnosis/symptom? @ -Acute fall, acute right hip fracture Acute, or Chronic, or Acute on Chronic? @ -Acute Uncomplicated (without systemic symptoms) or Complicated (systemic symptoms)? @ -Complicated Side effects of treatment? @ -No Exacerbation, Progression, or Severe Exacerbation? @ -No Poses a threat to life or bodily function? How? (Chest pain, [place], [place], pneumonia, PE, COPD, DKA, ARF, appy, cholecystitis, CVA, Diverticulitis, Homicidal, Suicidal, threat to staff... and all critical care pts) @ -No - Lab Data Result diagrams: 12/28/23 04:18 12/28/23 04:18 Lab Results 12/25/23 12/25/23 12/25/23 Range/Units 15:13 15:13 15:13 WBC 7.6 (3.8-10.6) k/uL RBC 4.53 (4.30-5.90) m/uL Hgb 13.1 (13.0-17.5) gm/dL Hct 39.0 (39.0-53.0) % MCV 86.0 (80.0-100.0) fL MCH 28.9 (25.0-35.0) pg MCHC 33.6 (31.0-37.0) g/dL RDW 14.3 (11.5-15.5) % Plt Count 221 (150-450) k/uL MPV 7.8 Neutrophils % 83 % Lymphocytes % 8 % Monocytes % 6 % Eosinophils % 1 % Basophils % 0 % Neutrophils # 6.3 (1.3-7.7) k/uL Lymphocytes # 0.6 L (1.0-4.8) k/uL Monocytes # 0.5 (0-1.0) k/uL Eosinophils # 0.1 (0-0.7) k/uL Basophils # 0.0 (0-0.2) k/uL PT 11.3 (10.0-12.5) sec INR 1.0 (<1.2) Sodium 144 (137-145) mmol/L Potassium 3.6 (3.5-5.1) mmol/L Chloride 114 H (98-107) mmol/L Carbon Dioxide 21 L (22-30) mmol/L Anion Gap 9 mmol/L BUN 17 (9-20) mg/dL Creatinine 0.75 (0.66-1.25) mg/dL Est GFR (CKD-EPI)AfAm >90 (>60 ml/min/1.73 sqM) Est GFR (CKD-EPI)NonAf >90 (>60 ml/min/1.73 sqM) Glucose 99 (74-99) mg/dL Calcium 8.6 (8.4-10.2) mg/dL Total Bilirubin 0.5 (0.2-1.3) mg/dL AST 31 (17-59) U/L ALT 22 (4-49) U/L Alkaline Phosphatase 102 (38-126) U/L Total Protein 6.5 (6.3-8.2) g/dL Albumin 3.7 (3.5-5.0) g/dL Disposition Clinical Impression: Femoral neck fracture, Fall Disposition: ADMITTED IP TO THIS [facility] Condition: Stable Is patient prescribed a controlled substance at d/c from ED?: No Time of Disposition: 15:10 Decision to Admit Reason: Admit from EC Decision Date: 12/25/23 Decision Time: 15:10
[2023-12-25] MEDS ORDERED: NALOXONE 0.4 MG/ML 1 ML VIAL IV PRN (15:10)
[2023-12-25 15:28] LABS: Basophils % (A) 0 %; Eosinophils # (A) 0.1 k/uL (0-0.7); Eosinophils % (A) 1 %; HGB 13.1 gm/dL (13.0-17.5); Lymphocytes # (A) 0.6 k/uL (1.0-4.8); Lymphocytes % (A) 8 %; MCH 28.9 pg (25.0-35.0); MCHC 33.6 g/dL (31.0-37.0); Mean Platelet Volume 7.8; Monocytes # (A) 0.5 k/uL (0-1.0); Monocytes % (A) 6 %; Neutrophils # (A) 6.3 k/uL (1.3-7.7); Neutrophils % (A) 83 %; Platelet Count 221 k/uL (150-450); RBC 4.53 m/uL (4.30-5.90); RDW 14.3 % (11.5-15.5); WBC 7.6 k/uL (3.8-10.6)
[2023-12-25 15:34] LABS: Prothrombin Time 11.3 sec (10.0-12.5)
[2023-12-25] MEDS: ACETAMINOPHEN TAB 325 MG TAB PO PRN (15:36)
[2023-12-25] MEDS ORDERED: DEXTROSE 50% SYRINGE 50 ML IVP PRN ×2 (15:38)
--- NOTE | 2023-12-25 15:45 | P.HPIM ---
History of Present Illness H&P Date: 12/25/23 Chief Complaint: Right hip pain Patient is a 63-year-old male with a past medical history of diabetes, prostate cancer treated with radiation, hyperlipidemia who presents to the ED after a fall. Patient states that he was cutting grass with he slipped and fell in an area that was on a slope. Patient states that he had turned too fast which made him fall down the hill. Patient states that in the past he has fractured his left hip. He states that he has similar pain on the right hip and immediately knew that he had fractured his right hip. Patient denies any history of smoking or drinking alcohol. Patient denies any cardiac history. Patient was admitted to the trauma service and medicine consulted for medical clearance. ROS: 10 ROS reviewed and are negative except as noted in HPI Physical exam General: [Alert and oriented, well nourished, no acute distress]. Eye: [PERRL, EOMI, normal conjunctiva]. HENT: [Normocephalic, clear tympanic membranes, normal hearing, moist oral mucosa, no scleral icterus, no sinus tenderness]. Neck: [Supple, non-tender, no carotid bruits, no JVD, no lymphadenopathy]. Lungs: [Clear to auscultation and percussion, non-labored respiration]. Heart: [Normal rate, regular rhythm, no murmur, gallop or edema]. Abdomen: [Soft, non-tender, non-distended, normal bowel sounds, no masses]. Musculoskeletal: [Restricted range of motion of the right lower extremity]. Skin: [Skin is warm, dry and pink, no rashes or lesions]. Neurologic: [Awake, alert, and oriented X3, CN II-XII intact]. Psychiatric: [Cooperative, appropriate mood and affect]. Assessment and plan Right hip fracture Patient is low risk for orthopedic surgery Diabetes mellitus Hold oral meds Sliding scale insulin Hyperlipidemia Resume statin Prostate cancer status post radiation Stable DVT prophylaxis: Will defer to primary team Thank you for this consult. Please do not hesitate to contact sound physicians with any questions. Past Medical History Past Medical History: Cancer, Diabetes Mellitus, Hearing Disorder / Deafness, Musculoskeletal Disorder, Osteoarthritis (OA), Prostate Disorder Additional Past Medical History / Comment(s): HEART RATE RUNS SLOW (mid 50s), ENLARGED PROSTATE dX WITH PROSTATE CANCER, CHRONIC EAR INFECTIONS hearing loss in both hear. pain in both knees. History of Any Multi-Drug Resistant Organisms: None Reported Past Surgical History: Ear Surgery, Hernia Repair, Orthopedic Surgery, Tonsillectomy Additional Past Surgical History / Comment(s): ear SURGERY , BILATERAL knees arthroscopic, left hip FRACTURE REPAIR, LEFT TIBIA REPAIR Past Anesthesia/Blood Transfusion Reactions: No Reported Reaction Past Psychological History: No Psychological Hx Reported Smoking Status: Former smoker - Past Family History Mother Family Medical History: No Reported History Medications and Allergies Home Medications Medication Instructions Recorded Confirmed Type Atorvastatin [Lipitor] 10 mg PO DAILY 12/25/23 12/25/23 History Ibuprofen [Motrin] 800 mg PO TID@0700,1300,2300 12/25/23 12/25/23 History metFORMIN HCL 500 mg PO BID 12/25/23 12/25/23 History Allergies Allergy/AdvReac Type Severity Reaction Status Date / Time No Known Allergies Allergy Verified 12/25/23 15:31 Physical Exam Osteopathic Statement: *. No significant issues noted on an osteopathic structural exam other than those noted in the History and Physical/Consult. Vitals: Vital Signs Temp Pulse Resp BP Pulse Ox 12/25/23 13:15 98.3 F 59 L 18 123/70 97 Intake and Output 12/25/23 12/25/23 12/25/23 06:59 14:59 22:59 Other: Weight 97.522 kg Results CBC & Chem 7: 12/25/23 15:13 Labs: Abnormal Lab Results - Last 24 Hours (Table) 12/25/23 Range/Units 15:13 Lymphocytes # 0.6 L (1.0-4.8) k/uL
[2023-12-25 15:54] LABS: Glucose,Whole Blood 98 mg/dL (70-110)
--- NOTE | 2023-12-25 16:05 | P.HPOR ---
History of Present Illness the patient is a very pleasant relatively healthy 63-year-old male who medical history significant for prostate cancer who presents to the ER with an isolated injury to his right hip. According to the patient he was mowing grass earlier today when he lost his balance and fell on the right side. He was immediately painful in the right hip and was unable to ambulate. At the time of my evaluation in the emergency department his complaining of isolated right hip pain. At his baseline is a community ambulator without assisted device. The patient does have a history of having had a left hip fracture that was treated with in situ screw fixation. He did well after this. Past Medical History Past Medical History: Cancer, Diabetes Mellitus, Hearing Disorder / Deafness, Musculoskeletal Disorder, Osteoarthritis (OA), Prostate Disorder Additional Past Medical History / Comment(s): HEART RATE RUNS SLOW (mid 50s), ENLARGED PROSTATE dX WITH PROSTATE CANCER, CHRONIC EAR INFECTIONS hearing loss in both hear. pain in both knees. History of Any Multi-Drug Resistant Organisms: None Reported Past Surgical History: Ear Surgery, Hernia Repair, Orthopedic Surgery, Tonsillectomy Additional Past Surgical History / Comment(s): ear SURGERY , BILATERAL knees arthroscopic, left hip FRACTURE REPAIR, LEFT TIBIA REPAIR Past Anesthesia/Blood Transfusion Reactions: No Reported Reaction Past Psychological History: No Psychological Hx Reported Smoking Status: Former smoker - Past Family History Mother Family Medical History: No Reported History Medications and Allergies Home Medications Medication Instructions Recorded Confirmed Type Atorvastatin [Lipitor] 10 mg PO DAILY 12/25/23 12/25/23 History Ibuprofen [Motrin] 800 mg PO TID@0700,1300,2300 12/25/23 12/25/23 History metFORMIN HCL 500 mg PO BID 12/25/23 12/25/23 History Allergies Allergy/AdvReac Type Severity Reaction Status Date / Time No Known Allergies Allergy Verified 12/25/23 15:31 Physical Examination the patient is resting comfortably on an emergency department gurney. He is alert and able to answer questions. He has relatively poor dentition. His head is otherwise normocephalic and atraumatic. He demonstrates nonlabored breathing with symmetric chest expansion. His abdomen is nonobese. His upper extremities are without deformity. He has dirt and grime on both of his hands. The left lower extremity is nontender to palpation and there is no pain with passive ran ge of motion of the hip, knee, or ankle. A focused exam of the right lower extremity was conducted. On inspection there are no open wounds or skin lesions. He has pain with attempted passive range of motion of the right hip. His thigh and calf are soft. He is nontender over the knee or ankle. Motor and sensory function are intact in the right foot and ankle. Results x-rays of the right hip and an AP of the pelvis show a nondisplaced transcervical femoral neck fracture. On the AP pelvis there is prior left in situ screw fixation of femoral neck fracture which appears to have healed. - Labs Labs: Abnormal Lab Results - Last 24 Hours (Table) 12/25/23 Range/Units 15:13 Lymphocytes # 0.6 L (1.0-4.8) k/uL H & H 12/25/23 Range/Units 15:13 Hgb 13.1 (13.0-17.5) gm/dL Hct 39.0 (39.0-53.0) % Coagulation 12/25/23 Range/Units 15:13 INR 1.0 (<1.2) Result Diagrams: 12/25/23 15:13 Assessment and Plan Assessment: right nondisplaced transcervical femoral neck fracture history of left femoral neck fracture treated with in situ screw fixation Plan: I long discussion with the patient in the emergency department on treatment of femoral neck fractures. His fracture appears to be nondisplaced. He also has a prior history of a left nondisplaced femoral neck fracture treated with in situ screw fixation. At the time of my evaluation and dictation the computed tomography scan of his right hip is pending. We briefly discussed treatment options. If his fracture is truly nondisplaced on the computed tomography scan we discussed in situ screw fixation versus total hip replacement. In situ screw fixation is a much smaller surgery and would salvage his [place] hip but requires a. Of toe touch weightbearing and has a higher risk of reoperation. We also discussed treatment with a total hip replacement. This would allow immediate weightbearing with a lower risk of reoperation but is a larger surgery and introduces the risks associated with a total hip replacement. Both treatment options were presented to the patient. Since he previously had in situ screw fixation and did well he requested with proceeding with a similar procedure on the right. We discussed that this would obviously depend on his computed wander ography scan but we will plan on in situ screw fixation tomorrow morning. The patient was given ample time to answer questions and is well aware of the potential risks and complications of both treatment options. He may well informed decision to proceed with in situ screw fixation. In the interim he is to be strictly nonweightbearing on his right leg and should remain on bedrest. The patient is to be nothing by mouth after midnight. Internal medicine has been consulted for preoperative clearance and postoperative medical management. Time with Patient: Greater than 30
[2023-12-25 16:07] LABS: ALT 22 U/L (4-49); AST 31 U/L (17-59); African American GFR (CKD) >90 (>60 ml/min/1.73 sqM); Albumin 3.7 g/dL (3.5-5.0); Alkaline Phosphatase 102 U/L (38-126); Anion Gap 9 mmol/L; Blood Urea Nitrogen 17 mg/dL (9-20); Calcium 8.6 mg/dL (8.4-10.2); Carbon Dioxide 21 mmol/L (22-30); Chloride 114 mmol/L (98-107); Glucose 99 mg/dL (74-99); Non-African American GFR(CKD) >90 (>60 ml/min/1.73 sqM); Potassium 3.6 mmol/L (3.5-5.1); Sodium 144 mmol/L (137-145); Total Bilirubin 0.5 mg/dL (0.2-1.3); Total Protein 6.5 g/dL (6.3-8.2)
[2023-12-25] MEDS: INSULIN ASPART (NovoLOG) 100 UNIT/ML VIAL SQ SCH (16:52)
--- NOTE | 2023-12-25 17:11 | CT ---
EXAMINATION TYPE: CT hip RT wo con DATE OF EXAM: 12/25/2023 COMPARISON: Radiograph same date HISTORY: 63-year-old male right hip pain following fall TECHNIQUE: Contiguous axial scanning of the right hip without IV contrast. Coronal and sagittal recon structions performed. 3-D reconstructions generated on a dedicated independent workstation. CT DLP: 586.3 mGycm Automated exposure control for dose reduction was used. FINDINGS: There is a mildly impacted transcervical fracture right femoral neck. Minimal 6 mm of posterior displ acement (sagittal image 49) and mild anterior apex angulation of 13 degrees. Mild comminution along t he superior margin of the fracture. Osteopenia. IMPRESSION: MILDLY IMPACTED TRANSCERVICAL FEMORAL NECK FRACTURE OF THE RIGHT HIP. Slight anterior apex angulation of 30 degrees and mild comminution along the superior margin of the fracture.
[2023-12-25 21:32] LABS: Glucose,Whole Blood 91 mg/dL (70-110)
[2023-12-26] MEDS: MORPHINE SULFATE 4 MG/ML SYRINGE IV PRN (05:29)
[2023-12-26 05:35] LABS: Glucose,Whole Blood 116 mg/dL (70-110)
[2023-12-26] MEDS: IV FLUID CONTINUATION 1,000 ML IV ONE (07:26)
[2023-12-26] MEDS: ONDANSETRON 4 MG/2 ML VIAL IVP STA (07:41)
[2023-12-26] MEDS: DEXAMETHASONE SOD PHOSPHATE 4 MG/ML 1 ML VIAL IVP STA (07:42)
[2023-12-26] MEDS: ATORVASTATIN 10 MG TAB PO SCH (07:47)
[2023-12-26] MEDS: MIDAZOLAM 2 MG/2 ML VIAL IVP ONE (07:47)
[2023-12-26] MEDS ORDERED: GLYCOPYRROLATE 0.2 MG/ML 2 ML VIAL ONE (08:00)
[2023-12-26] MEDS ORDERED: PHENYLEPHRINE 10 MG/ML VIAL ONE (08:00)
[2023-12-26] MEDS ORDERED: DEXAMETHASONE SOD PHOSPHATE 4 MG/ML 1 ML VIAL ONE (08:00)
[2023-12-26] MEDS ORDERED: ROCURONIUM 10 MG/ML (5 ML VIAL) IV ONE (08:00)
[2023-12-26] MEDS ORDERED: ROPIVACAINE 5 MG/ML 30 ML VIAL ONE (08:00)
[2023-12-26] MEDS ORDERED: WATER FOR INJECTION, STERILE 10 ML VIAL IV ONE (08:00)
[2023-12-26] MEDS ORDERED: fentaNYL (PF) 50 MCG/ML 2 ML AMP ONE (08:00)
[2023-12-26] MEDS ORDERED: HYDROmorphone (PF) 1 MG/ML ONE (08:00)
[2023-12-26] MEDS ORDERED: NEOSTIGMINE 1 MG/ML 10 ML VIAL ONE (08:00)
[2023-12-26] MEDS ORDERED: SUCCINYLCHOLINE CHLORIDE 200 MG/10 ML VIAL IV ONE (08:00)
[2023-12-26] MEDS ORDERED: ceFAZolin 1 GM/50 ML BAG (PMX) ONE (08:00)
[2023-12-26] MEDS ORDERED: PROPOFOL 10 MG/ML 20 ML VIAL IV ONE (08:00)
[2023-12-26] MEDS ORDERED: TRANEXAMIC 1,000 MG/100ML-NACL PREMIX BAG ONE (08:00)
[2023-12-26] MEDS ORDERED: ePHEDrine 50 MG/ML 1 ML VIAL ONE (08:00)
[2023-12-26] MEDS ORDERED: LIDOCAINE 1% INJ 10MG/ML (20 ML MDV) ONE (08:00)
[2023-12-26] MEDS: SODIUM CHLORIDE 0.9% 100 ML with ceFAZolin 2,000 MG IV ONE ×2 (08:07→08:15)
--- NOTE | 2023-12-26 08:33 | P.ANPRN ---
Procedure Note - Anesthesia - Nerve Block Performed Right Rito Single Time Out Performed: Yes Date of Procedure: 12/26/23 Procedure Start Time: 07:46 Procedure Stop Time: 07:51 Location of Patient: PreOp Indication: Acute Post-Operative Pain, Analgesia, Requested by Surgeon Sedation Type: Sedate with meaningful contact maintained Preparation: Sterile Prep Position: Supine Catheter: None Needle Types: Pajunk Needle Gauge: 21 Ultrasound used to visualize needle placement: Yes Ultrasound used to observe medication spread: Yes Injectate: 0.5% Ropivacaine (see comment for volume) (Ropiv 20ml+decadron 4mg.) Blood Aspirated: No Pain Paresthesia on Injection Noted: No Resistance on Injection: Normal Image Stored and Saved: Yes Events: Uneventful and Well Tolerated
[2023-12-26] MEDS: ROPIVACAINE/EPI/CLONIDINE/KET 50 ML SYRINGE MISCELLANE PRN (08:59)
[2023-12-26] MEDS: LACTATED RINGERS 1,000 ML IV ONE (09:16)
[2023-12-26 09:21] LABS: Basophils # (A) 0.02 X 10*3/uL (0.00-0.10); Basophils % (A) 0.2 %; Eosinophils % (A) 1.2 %; HCT 40.5 % (39.6-50.0); HGB 12.7 g/dL (13.0-17.0); Lymphocytes # (A) 0.61 X 10*3/uL (0.90-5.00); Lymphocytes % (A) 7.6 %; MCH 27.4 pg (27.0-32.0); MCHC 31.4 g/dL (32.0-37.0); MCV 87.5 FL (80.0-97.0); Mean Platelet Volume 10.6 FL (9.5-12.2); Monocytes # (A) 0.55 X 10*3/uL (0.20-1.00); Monocytes % (A) 6.8 %; NRBC Per 100 WBC 0 X 10*3/uL (0.00-0.01); Neutrophils # (A) 6.75 X 10*3/uL (1.80-7.70); Neutrophils % (A) 83.8 %; Platelet Count 211 X 10*3/uL (140-440); RBC 4.63 X 10*6/uL (4.40-5.60); RDW 14.2 % (11.5-14.5); WBC 8.06 X 10*3/uL (4.50-10.00)
[2023-12-26 09:39] LABS: BUN/Creat Ratio 13.12 Ratio (12.00-20.00); Blood Urea Nitrogen 10.5 mg/dL (9.0-27.0); Calcium 8.3 mg/dL (8.7-10.3); Carbon Dioxide 23.1 mmol/L (21.6-31.8); Chloride 106 mmol/L (96-109); Glucose 120 mg/dL (70-110); Potassium 3.3 mmol/L (3.5-5.5); Sodium 141 mmol/L (135-145)
[2023-12-26] MEDS: VANCOMYCIN 1,000 MG VIAL MISCELLANE ONE (10:02)
[2023-12-26] MEDS ORDERED: HYDROmorphone 1 MG/ML 1 ML SYRINGE IVP PRN (10:26)
[2023-12-26] MEDS ORDERED: hydrOXYzine pamoate 25 MG CAP PO PRN (10:26)
[2023-12-26] MEDS ORDERED: HYDROmorphone 0.5 MG/0.5 ML SYRINGE IVP PRN (10:26)
[2023-12-26] MEDS ORDERED: NALOXONE 0.4 MG/ML 1 ML VIAL IV PRN (10:26)
[2023-12-26] MEDS ORDERED: MAGNESIUM HYDROXIDE 2,400 MG/30 ML CUP PO PRN (10:26)
[2023-12-26] MEDS ORDERED: ONDANSETRON 4 MG/2 ML VIAL IVP PRN (10:26)
--- NOTE | 2023-12-26 10:26 | P.OP ---
Date of Procedure: 12/26/23 Preoperative Diagnosis: 1. Displaced right transcervical femoral neck fracture 2. History of left hip fracture 3. Prostate cancer 4. Type 2 diabetes Postoperative Diagnosis: Same Procedure(s) Performed: 1. Right direct anterior total hip arthroplasty 2. Application of negative pressure incisional wound VAC, right hip, less than 50 cm, incision measuring 15 cm Implants: 1. Dupo Trident II Acetabular Cup, Size #54 2. Francisco Insignia Size #7 Femoral Stem, Standard Offset 3. Biolox delta femoral head, 36 mm, +2.5 mm neck Anesthesia: BINUA, regional Surgeon: Ash Draper [employer] Space Salesperson #1: Estuardo Naylor Estimated Blood Loss (ml): 200 IV fluids (ml): 1,000 Pathology: other (femoral head to pathology) Condition: stable Disposition: PACU Indications for Procedure: The patient is a very pleasant 63-year-old male with a medical history significant for prostate cancer and tape 2 diabetes who presented yesterday to our ER after a ground-level fall with a right femoral neck fracture. The pa tient had previously had in situ screw fixation of a left femoral neck fracture to an outside facility. The patient had x-rays which showed a minimally displaced femoral neck fracture. Computed tomography scan however showed more displacement and a posterior tilt angle of greater than 20. Due to the patient's computed tomography scan findings I think that the patient is best served with a total hip arthroplasty. We had a long discussion about this. We both agreed that in situ fixation with screws would have a higher rate of failure and that the patient would be best treated with a total hip replacement. The patient voiced his understanding of this. Risks discussed include, but are certainly not limited to, risks from anesthesia, superficial infection requiring local wound care or antibiotics, deep jourdan-prosthetic joint infection and the treatment required to eradicate infection, intraoperative fracture, postoperative periprosthetic fracture, damage to local blood vessels or nerves particularly the lateral femoral cutaneous nerve, delayed wound healing requiring local wound care or possibly surgical debridement, hip dislocation, leg length discrepancy, soft tissue irritation around the total hip implant such as iliopsoas tendinitis or trochanteric bursitis, wear and osteolysis from the implants, squeaking or audible noises, groin pain, thigh pain, heterotopic ossification, stiffness, aseptic loosening of the implants, dissatisfaction with surgical outcome, need for revision surgery, DVT, PE, swelling of the operative extremity, acute coronary event, stroke, failure to thrive, and possibly loss of life or limb. The patient understands that while these are the most common complications after an elective hip replacement there are certainly other less common complications possible. They were given ample time to ask questions regarding the potential complications of a hip replacement. Following our discussion the patient provided their verbal and written consent to go forward with an elective total hip replacement. Operative Findings: There was a displaced transcervical femoral neck fracture. There was also a large hemarthrosis consistent with an acute fracture. The fracture line extended 1 cm above the lesser trochanter. With a trial broach 1 cm above the femoral neck a calcar planar was used to bring the neck cut flush to the trial broach. There was intact bone circumferentially around the broach with no visible fracture lines. Description of Procedure: The patient was identified in the preoperative holding area and the correct hip was marked with my initials. I reviewed the procedure and consent with the patient. All of their questions were answered. The patient was then brought back into the operating room by anesthesia. While on the [facility] anesthesia was administered by the anesthesia team. Preoperative antibiotics and tranexamic acid were also given. After the patient was under anesthesia I examined their ankles to determine their preoperative leg length discrepancy. The skin over the anterior aspect of the hip was shaved to remove hair over the site of planned incision. Both feet and ankles were padded with webril and boots for the Harmony were applied. The patient was then carefully transferred onto the Harmony table. A perineal post was immediately placed. The arms were placed on arm holders and were well-padded. Both boots were secured to the spars on the Harmony table. The patient was positioned so that the pelvis was centered over the post. Nonsterile drapes were applied. A timeout was performed identifying the correct patient, operative extremity, and procedure. At this point fluoroscopy was brought in to take preoperative images of the pelvis and operative hip. A metallic bar was used to create a bi-ischial line for use as a reference to leg length adjustments during the procedure. Global offset was also measured on both the operative and nonoperative leg. Fluoroscopy was then brought out and a pre-scrub using a chlorhexidine scrub brush was performed. The operative limb was then prepped and draped in the standard sterile fashion. An anterior longitudinal incision was made lateral and distal to the ASIS. The skin and subcutaneous tissues were incised sharply. The underlying tensor fascia was identified and incised in its midportion. The fascia was dissected free from the underlying muscle and the muscle belly was retracted. A blunt tipped cobra retractor was placed over the superior neck under the muscle fibers of the gluteus minimus. The deep enveloping fascia of the tensor was incised. The anterior leash of vessels were then identified and cauterized. The fascia between the rectus and the capsule was then incised and the pre-capsular fat was excised. A second Cobra was placed inferior to the neck. The interval between the rectus and iliocapsularis and the hip capsule was developed and a retractor was placed carefully over the anterior rim of the acetabulum. A T-shaped anterior capsulotomy was performed. there was a large hemarthrosis consistent with an acute femoral neck fracture. The fracture was displaced. The fracture ended 1 cm proximal to the lesser trochanter. The superior capsular leaflet was left in place in the inferior capsular flap was excised. The Cobra retractors were placed intracapsularly. We then made a femoral neck osteotomy according to preoperative and intraoperative templating and confirmed the level of the osteotomy using fluoroscopic imaging. The femoral head was removed, passed off to the back table, and sized. The superior capsular flap was excised. Retractors were placed circumferentially exposing the acetabulum. We then circumferentially debrided the acetabulum free of labrum and osteophytes. The pulvinar was removed to fully visualize the cotyloid fossa. We then sequentially reamed to achieve peripheral fit and excellent bleeding subchondral bone. The socket was thoroughly irrigated. The acetabular component was impacted into the appropriate position using fluoroscopy to guide version, inclination, and depth of insertion taking care to have a comparable image of the AP pelvis to the standing image taken in the office. An excellent press-fit was achieved and final position was confirmed using fluoroscopy. The press fit was augmented with bony cancellus dome screws. The liner was then impacted into the socket. Attention was then turned to the femur. The remnant dorsal lateral capsule was excised. The short external rotators were visible and protected. A bone hook was used to confirm appropriate translation of the trochanter away from the acetabulum. The leg was then extended and adducted and the bone hook was used to elevate the femur for broaching. A box osteotome and blunt tipped canal sound was then utilized to gain access to the femoral canal. We then sequentially broached the femur in appropriate anteversion until excellent torsional stability was achieved. The neck cut was brought flush to the trial broach with a calcar planar. On visual inspection there were no fracture lines or areas of fracture propagation. The trial stem appeared stable. A trial neck and head were then placed onto the broach and the hip was atraumatically reduced under direct visualization. External rotation to 90 was performed to assess stability. Fluoroscopy was brought in. An AP and lateral fluoroscopic image of the proximal femur was obtained to assess position and fill of the trial broach. An AP of the pelvis was then obtained and matched to the preoperative image taken. A bi-ischial bar was then placed and measurements were taken to assess changes in length and offset. The hip was then carefully dislocated, the proxim al femur was exposed, and the trial implants were removed. The wound and proximal femur was thoroughly irrigated using sterile saline and pulsatile lavage. The final femoral implant was dispensed and gently tapped into place generating an excellent press-fit. The trunnion was cleansed and the final head was tapped into place to engage the Omdi taper. The acetabulum was irrigated and visualized to be free of debris. The hip was carefully reduced. Stability was checked clinically with external rotation to 90 and there was no evidence of instability. Final fluoroscopic images were taken. The wound was then thoroughly irrigated and soaked with a dilute Betadine rinse for 3 minutes. 3 L of sterile saline was irrigated through the wound using pulsatile lavage. Local anesthetic cocktail was injected into the soft tissues around the surgical field. 2 grams of vancomycin powder was placed in the wound. The wound was then closed in layers. An incisional wound VAC was placed over the closed incision to help lower the risk of delayed wound healing and surgical site infection. After connecting the wound VAC to it's power source, there was an excellent seal. The drapes were taken down and the patient was carefully transferred off of the Harmony table. Following removal of the boots the leg lengths felt acceptable. The patient was then taken to recovery room having tolerated the procedure well. Estuardo Naylor PA-C was required as a skilled assistant program manager due to the complexity of the procedure for patient positioning, draping, exposure, retraction, closure of wound and application of dressing. . PLAN: The patient can weight-bear as tolerated on the operative extremity. 2 doses of postoperative antibiotics followed by doxycycline 100 mg BID until his incision heals. DVT prophylaxis with aspirin 81 mg twice a day based on preoperative risk stratification. Physical therapy for gait training. Discharge planning.
[2023-12-26 11:15] LABS: Glucose,Whole Blood 183 mg/dL (70-110)
[2023-12-26] MEDS: POTASSIUM CHLORIDE 20 MEQ in WATER FOR INJECTION 1 100ML.BAG IVPB ONE (12:26)
[2023-12-26] MEDS: SODIUM CHLORIDE 0.9% 1,000 ML IV SCH (12:27)
--- NOTE | 2023-12-26 13:19 | XR ---
EXAMINATION TYPE: XR Hip Limited RT, FL guidance operating room DATE OF EXAM: 12/26/2023 Comparison: 12/25/2023 Clinical History: 63-year-old male Rt Hip Fx Findings: FLUOROSCOPY Fluoroscopy time of 47.2 seconds was used during right hip total arthroplasty. 7 image/s document/s the procedure. DAP 2.35 Gycm2.
[2023-12-26 16:36] LABS: Glucose,Whole Blood 188 mg/dL (70-110)
[2023-12-26 20:21] LABS: Glucose,Whole Blood 138 mg/dL (70-110)
[2023-12-26] MEDS: ASPIRIN 81 MG PO SCH (20:26)
[2023-12-26] MEDS: HYDROcodone/APAP 10-325MG 1 EACH TAB PO PRN (20:26)
[2023-12-26] MEDS: SENNOSIDES-DOCUSATE SODIUM 1 EACH TAB PO SCH (20:26)
[2023-12-27 06:21] LABS: Glucose,Whole Blood 148 mg/dL (70-110)
[2023-12-27] MEDS: DOXYCYCLINE 100 MG CAP PO SCH (08:23)
[2023-12-27 09:28] LABS: Basophils # (A) 0.02 X 10*3/uL (0.00-0.10); Basophils % (A) 0.2 %; Eosinophils # (A) 0.05 X 10*3/uL (0.04-0.35); Eosinophils % (A) 0.5 %; HGB 10.9 g/dL (13.0-17.0); Lymphocytes # (A) 0.82 X 10*3/uL (0.90-5.00); Lymphocytes % (A) 7.9 %; MCH 28.5 pg (27.0-32.0); MCV 86.2 FL (80.0-97.0); Monocytes # (A) 0.69 X 10*3/uL (0.20-1.00); Monocytes % (A) 6.6 %; NRBC Per 100 WBC 0 X 10*3/uL (0.00-0.01); Neutrophils # (A) 8.78 X 10*3/uL (1.80-7.70); Neutrophils % (A) 84.6 %; Platelet Count 186 X 10*3/uL (140-440); RBC 3.83 X 10*6/uL (4.40-5.60); RDW 14.3 % (11.5-14.5); WBC 10.38 X 10*3/uL (4.50-10.00)
--- NOTE | 2023-12-27 10:02 | P.PN ---
Subjective Progress Note Date: 12/27/23 Patient is doing well as morning. He is been up walking with a walker to the bathroom several times. He has some mild pain in his hip but complains more of stiffness. He denies chest pain or shortness of breath. Objective - Vital Signs Vital signs: Vital Signs Temp 98.3 F 12/27/23 07:31 Pulse 63 12/27/23 07:31 Resp 18 12/27/23 07:31 BP 133/71 12/27/23 07:31 Pulse Ox 92 L 12/27/23 07:31 FiO2 Intake & Output 12/26/23 12/27/23 12/27/23 18:59 06:59 18:59 Intake Total 1450 Output Total 200 1325 Balance 1250 -1325 Intake: IV 1450 Output: Urine 1325 Estimated Blood Loss 200 Other: Voiding Method Urinal # Voids 3 - Exam The patient is resting comfortably in their bed. A focused examination of the operative hip was performed. On inspection there is a clean-appearing dressing over the anterior hip with no drainage or strike through. There is mild swelling throughout the thigh. Femoral nerve function is intact. The patient is able to actively dorsiflex and plantarflex their ankle and toes. Sensation is intact to light touch throughout the foot. The foot is warm and well-perfused with brisk capillary refill. - Labs CBC & Chem 7: 12/27/23 03:02 12/26/23 06:01 Labs: Abnormal Lab Results - Last 24 Hours (Table) 12/26/23 12/26/23 12/26/23 Range/Units 06:01 11:14 16:35 WBC (4.50-10.00) X 10*3/uL RBC (4.40-5.60) X 10*6/uL Hgb (13.0-17.0) g/dL Hct (39.6-50.0) % Neutrophils # (1.80-7.70) X 10*3/uL Lymphocytes # (0.90-5.00) X 10*3/uL POC Glucose (mg/dL) 183 H 188 H (70-110) mg/dL Hemoglobin A1c 6.5 H (<=6.0) % 12/26/23 12/27/23 12/27/23 Range/Units 20:21 03:02 06:21 WBC 10.38 H (4.50-10.00) X 10*3/uL RBC 3.83 L (4.40-5.60) X 10*6/uL Hgb 10.9 L (13.0-17.0) g/dL Hct 33.0 L (39.6-50.0) % Neutrophils # 8.78 H (1.80-7.70) X 10*3/uL Lymphocytes # 0.82 L (0.90-5.00) X 10*3/uL POC Glucose (mg/dL) 138 H 148 H (70-110) mg/dL Hemoglobin A1c (<=6.0) % Assessment and Plan Assessment: Postoperative day #1 status post right direct anterior total hip arthroplasty for displaced femoral neck fracture Type 2 diabetes History of prostate cancer Plan: 1. Weight bear as tolerated on the operative extremity, up with assistance and a walker 2. DVT prophylaxis with aspirin 81 mg BID 3. 2 doses of post operative antibiotics followed by doxycycline until his incision heals 4. Leave surgical dressing in place 5. Internal medicine for jourdan-operative medical management 6. Physical therapy for gait training and mobilization 7. Dispo: Discharge planning - the patient lives alone and would like to d/c to rehab if possible.
--- NOTE | 2023-12-27 11:37 | P.PN ---
Subjective Progress Note Date: 12/27/23 Patient seen this morning. I did see the patient get up by himself and use the walker to go to the bathroom with minimal assistance. Patient states that he does have some pain in his right hip area. Otherwise he is denying any acute complaints. 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 Will continue to trend CBC PT OT consult pending Patient on aspirin 81 mg p.o. twice daily for DVT prophylaxis Elevated WBC Likely from surgery Will continue to trend CBC Diabetes mellitus Hold oral meds Sliding scale insulin Hyperlipidemia Resume statin Prostate cancer status post radiation Stable DVT prophylaxis: Patient on aspirin 81 mg p.o. twice daily for DVT prophylaxis If hemoglobin is stable tomorrow patient is stable for discharge from a medical standpoint. Will continue to follow. Thank you for this consult. Please do not hesitate to contact sound physicians with any questions. Objective - Vital Signs Vital signs: Vital Signs Temp 98.3 F 12/27/23 07:31 Pulse 63 12/27/23 07:31 Resp 18 12/27/23 07:31 BP 133/71 12/27/23 07:31 Pulse Ox 92 L 12/27/23 07:31 FiO2 Intake & Output 12/26/23 12/27/23 12/27/23 18:59 06:59 18:59 Intake Total 1450 Output Total 200 1325 Balance 1250 -1325 Intake: IV 1450 Output: Urine 1325 Estimated Blood Loss 200 Other: Voiding Method Urinal # Voids 3 - Labs CBC & Chem 7: 12/27/23 03:02 12/26/23 06:01 Labs: Abnormal Lab Results - Last 24 Hours (Table) 12/26/23 12/26/23 12/26/23 Range/Units 06:01 16:35 20:21 WBC (4.50-10.00) X 10*3/uL RBC (4.40-5.60) X 10*6/uL Hgb (13.0-17.0) g/dL Hct (39.6-50.0) % Neutrophils # (1.80-7.70) X 10*3/uL Lymphocytes # (0.90-5.00) X 10*3/uL POC Glucose (mg/dL) 188 H 138 H (70-110) mg/dL Hemoglobin A1c 6.5 H (<=6.0) % 12/27/23 12/27/23 Range/Units 03:02 06:21 WBC 10.38 H (4.50-10.00) X 10*3/uL RBC 3.83 L (4.40-5.60) X 10*6/uL Hgb 10.9 L (13.0-17.0) g/dL Hct 33.0 L (39.6-50.0) % Neutrophils # 8.78 H (1.80-7.70) X 10*3/uL Lymphocytes # 0.82 L (0.90-5.00) X 10*3/uL POC Glucose (mg/dL) 148 H (70-110) mg/dL Hemoglobin A1c (<=6.0) %
[2023-12-27 11:41] LABS: Glucose,Whole Blood 161 mg/dL (70-110)
[2023-12-27 16:30] LABS: Glucose,Whole Blood 169 mg/dL (70-110)
[2023-12-27 20:39] LABS: Glucose,Whole Blood 145 mg/dL (70-110)
[2023-12-27] MEDS: HYDROcodone/APAP 5-325MG 1 EACH TAB PO PRN (20:57)
[2023-12-28 01:45] VITALS: TEMP 97.5
[2023-12-28 06:04] LABS: Glucose,Whole Blood 166 mg/dL (70-110)
[2023-12-28 08:10] VITALS: BP 154/77; PULSE 66; RESP 18
--- NOTE | 2023-12-28 08:31 | P.DS ---
Providers Date of admission: 12/25/23 15:15 Attending physician: Ash Draper Consults: 12/25/23 15:08 Consult Physician Urgent Consulting Provider: Jaspreet Hinojosa Consult Reason/Comments: medical clearance, fall with right hip fracture Do you want consulting provider notified?: Yes Primary care physician: Justus Snell MD - Discharge Diagnosis(es) (1) Femoral neck fracture Current Visit: Yes Status: Acute Hospital Course: The patient is a pleasant 63-year-old male who medical history significant for prostate cancer who presents to the ER on 12/26/2023 after he fell while mowing grass and injured his right hip. At his baseline he is a community ambulator without assisted device. Xray findings in the ER indicated right femoral neck fracture. Computed tomography scan of his right hip indicated a displaced right transcervical femoral neck fracture. On 12/27/2023 he had a Right direct anterior total hip arthroplasty, and Application of negative pressure incisional wound VAC, right hip, less than 50 cm, incision measuring 15 cm. He tolerated the procedure well. He was transferred to the floor. On POD#1 he was up walking with walker. This morning POD#2 he was sitting up in bed eating breakfast, wound vac in place and intact. Femoral nerve function intact, and able to plantar and dorsiflex the ankles. He states he has someone that can stay with him at home. Plan to work with physical therapy today. Pending physical therapy he can discharge to home with home health care today. Leave wound vac in place until post op visit in office. Patient Condition at Discharge: Stable Plan - Discharge Summary Discharge Rx Participant: Yes New Discharge Prescriptions: New Docusate [Colace] 100 mg PO BID #60 capsule Diclofenac Sodium [Voltaren] 75 mg PO BID #60 tab HYDROcodone/APAP 5-325MG [[place]u 5-325] 1 - 2 tab PO Q6HR PRN #32 tab PRN Reason: Pain Aspirin 81 mg PO BID #60 tab Omeprazole 40 mg PO DAILY #30 cap Doxycycline Monohydrate 100 mg PO BID #28 cap No Action Ibuprofen [Motrin] 800 mg PO TID@0700,1300,2300 Atorvastatin [Lipitor] 10 mg PO DAILY metFORMIN HCL 500 mg PO BID Discharge Medication List Atorvastatin [Lipitor] 10 mg PO DAILY 12/25/23 [History] Ibuprofen [Motrin] 800 mg PO TID@0700,1300,2300 12/25/23 [History] metFORMIN HCL 500 mg PO BID 12/25/23 [History] Aspirin 81 mg PO BID #60 tab 12/26/23 [Rx] Diclofenac Sodium [Voltaren] 75 mg PO BID #60 tab 12/26/23 [Rx] Docusate [Colace] 100 mg PO BID #60 capsule 12/26/23 [Rx] Doxycycline Monohydrate 100 mg PO BID #28 cap 12/26/23 [Rx] HYDROcodone/APAP 5-325MG [[place] 5-325] 1 - 2 tab PO Q6HR PRN #32 tab 12/26/23 [Rx] Omeprazole 40 mg PO DAILY #30 cap 12/26/23 [Rx] Follow up Appointment(s)/Referral(s): Justus Snell MD [Primary Care Provider] - 1-2 days Ash Draper MD [Medical Doctor] - 2 Weeks Activity/Diet/Wound Care/Special Instructions: 1. Weight-bear as tolerated on your operative extremity unless instructed otherwise. Use a walker or other assistive device to ambulate. 2. Leave surgical dressing in place. If your dressing becomes saturated with blood, there is drainage, or the dressing becomes loose please contact the office. 3. It is okay to shower with your surgical dressing, but do not submerge in water (no hot tubs, bath's, swimming etc.) 4. Make sure to take her blood clot prevention medication as prescribed (aspirin, Eliquis, Xarelto, and Plavix are commonly prescribed medications for blood clot prevention) 5. While taking [place]ib[place] or Percocet for pain make sure you're taking a stool softener (Colace) and drink lots of water. 6. Keep all follow-up appointments as scheduled. You will usually be seen in 1-2 weeks following surgery. 7. Please contact the office with any questions or concerns [phone] 8. Leave wound vac in place until post op visit in our office. Discharge Disposition: HOME WITH HOME HEALTH SERVICES
[2023-12-28 08:38] LABS: Basophils # (A) 0.02 X 10*3/uL (0.00-0.10); Basophils % (A) 0.2 %; Eosinophils # (A) 0.18 X 10*3/uL (0.04-0.35); Eosinophils % (A) 1.9 %; HCT 39.4 % (39.6-50.0); HGB 12.3 g/dL (13.0-17.0); Lymphocytes # (A) 0.73 X 10*3/uL (0.90-5.00); Lymphocytes % (A) 7.6 %; MCH 27.6 pg (27.0-32.0); MCHC 31.2 g/dL (32.0-37.0); MCV 88.3 FL (80.0-97.0); Mean Platelet Volume 10.4 FL (9.5-12.2); Monocytes # (A) 0.72 X 10*3/uL (0.20-1.00); Monocytes % (A) 7.5 %; NRBC Per 100 WBC 0 X 10*3/uL (0.00-0.01); Neutrophils # (A) 7.97 X 10*3/uL (1.80-7.70); Neutrophils % (A) 82.5 %; Platelet Count 231 X 10*3/uL (140-440); RBC 4.46 X 10*6/uL (4.40-5.60); RDW 14.5 % (11.5-14.5); WBC 9.65 X 10*3/uL (4.50-10.00)
[2023-12-28 09:47] LABS: BUN/Creat Ratio 13.78 Ratio (12.00-20.00); Blood Urea Nitrogen 12.4 mg/dL (9.0-27.0); Calcium 8.2 mg/dL (8.7-10.3); Carbon Dioxide 22.2 mmol/L (21.6-31.8); Chloride 105 mmol/L (96-109); Glucose 143 mg/dL (70-110); Potassium 3.8 mmol/L (3.5-5.5); Sodium 139 mmol/L (135-145)
[2023-12-28 11:40] LABS: Glucose,Whole Blood 171 mg/dL (70-110)
--- NOTE | 2023-12-28 17:56 | P.PN ---
Subjective Progress Note Date: 12/28/23 Subjective Patient seen and examined at bedside. No acute events overnight. Patient states he is in minimal pain and is able to go to the bathroom with a walker. Pertinent positives and negatives as discussed above, a complete review of systems was performed and all other systems are negative. Vitals: Signs Reviewed: Physical Exam: General: nontoxic, no distress, appears at state age Head: Atraumatic, normocephalic, symmetric Eyes: EOMI, no lid lag, anicteric sclera Cardiovascular: RRR, no murmurs or gallops appreciated Lungs: clear on auscultation bilaterally Abdominal: Nontender, nondistended, no rigidity, soft Extremities: right upper leg sorness, no edema, dressing clean, dry, intact Psych: Alert, oriented, appropiate affect Data Received Today: Pertinent Labs: Hemoglobin 12.3, potassium 3.8, creatinine 0.9, blood sugars range between 1 43-1 71 Imaging: No new imaging Assessment and Plan: Patient is a 63-year-old man with a past medical history of type 2 diabetes, pro state cancer with radiation, and hyperlipidemia who presented to the ED due to a fall while mowing the lawn Right sided femoral neck fracture status post arthroplasty total hip Patient able to ambulate Pain management per orthopedic surgery Bowel regimen per orthopedic surgery Aspirin 81 mg twice daily for DVT prophylaxis Type 2 diabetes Sliding scale insulin, monitor for hypoglycemia Resume metformin at discharge Dyslipidemia Continue atorvastatin 10 mg daily Chronic: prostate cancer status post radiation Patient is medically optimized for discharge home Thank you for allowing us to participate in the care of this pleasant patient. Do not hesitate to contact us with questions. Someone can be reached from the [facility] hospitalist group all hours of the day at [phone] or via perfect serve. Objective - Vital Signs Vital signs: Vital Signs Temp 97.5 F L 12/28/23 08:09 Pulse 66 12/28/23 08:09 Resp 18 12/28/23 08:09 BP 154/77 12/28/23 08:09 Pulse Ox 94 L 12/28/23 08:09 FiO2 Intake & Output 12/27/23 12/28/23 12/28/23 18:59 06:59 18:59 Output Total 1400 Balance -1400 Output: Urine 1400 Other: Voiding Method Toilet Urinal # Voids 1 - Labs CBC & Chem 7: 12/28/23 04:18 12/28/23 04:18 Labs: Abnormal Lab Results - Last 24 Hours (Table) 12/27/23 12/27/23 12/28/23 Range/Units 16:29 20:37 04:18 Hgb 12.3 L (13.0-17.0) g/dL Hct 39.4 L (39.6-50.0) % MCHC 31.2 L (32.0-37.0) g/dL Neutrophils # 7.97 H (1.80-7.70) X 10*3/uL Lymphocytes # 0.73 L (0.90-5.00) X 10*3/uL Glucose (70-110) mg/dL POC Glucose (mg/dL) 169 H 145 H (70-110) mg/dL Calcium (8.7-10.3) mg/dL 12/28/23 12/28/23 12/28/23 Range/Units 04:18 06:03 11:38 Hgb (13.0-17.0) g/dL Hct (39.6-50.0) % MCHC (32.0-37.0) g/dL Neutrophils # (1.80-7.70) X 10*3/uL Lymphocytes # (0.90-5.00) X 10*3/uL Glucose 143 H (70-110) mg/dL POC Glucose (mg/dL) 166 H 171 H (70-110) mg/dL Calcium 8.2 L (8.7-10.3) mg/dL
== END 2023-12-28 15:02 | disposition home health service (06) | DRG 522 ==
LOC: EC 13:08 → 4SSUR 15:15
PROVIDERS: ADMIT Orthopaedic Surgery; ATTEND Orthopaedic Surgery
DX: S72.031A Displaced midcervical fracture of right femur, initial encounter for closed fracture (principal); D62 Acute posthemorrhagic anemia; H91.90 Unspecified hearing loss, unspecified ear; W19.XXXA Unspecified fall, initial encounter; W17.81XA Fall down embankment (hill), initial encounter; N40.0 Benign prostatic hyperplasia without lower urinary tract symptoms; E78.5 Hyperlipidemia, unspecified; E11.9 Type 2 diabetes mellitus without complications; Z85.46 Personal history of malignant neoplasm of prostate; I10 Essential (primary) hypertension; I45.10 Unspecified right bundle-branch block; Z79.84 Long term (current) use of oral hypoglycemic drugs; Z79.899 Other long term (current) drug therapy; Z92.3 Personal history of irradiation
CPT/HCPCS: 64447; 73501; 73502; 80048; 80053; 82306; 83036; 85025; 85610; 86850; 86900; 86901; 88305; 88311; 93005; 99285

== ENCOUNTER → 2024-04-07 | Outpatient (CLI) | payer MEDICARE, BC | END | disposition home or self-care (01) | LOC: LABWHC1 13:19 | PROVIDERS: ATTEND Radiology Radiation Oncology | CPT/HCPCS: 36415; 84153 ==

== ENCOUNTER → 2024-10-18 | Outpatient (CLI) | payer MEDICARE, BC | END | disposition home or self-care (01) | LOC: LABWHC1 08:36 | PROVIDERS: ATTEND Radiology Radiation Oncology | DX: Z08 Encounter for follow-up examination after completed treatment for malignant neoplasm (principal); C61 Malignant neoplasm of prostate; Z87.891 Personal history of nicotine dependence | CPT/HCPCS: 36415; 84153 ==